=== PATIENT | female | born 1955 | race American Indian/Alaskan Native ===

== ENCOUNTER 2017-04-07 19:11 | Inpatient (IN) | payer OTHER ==
[2017-04-07 21:48] VITALS: BMI 27.8
--- NOTE | 2017-04-07 23:21 | CP.PCM.HP ---
History of Present Illness - History of Present Illness History of Present Illness: CC: rehab s/p L sided CVA HPI: This is a 61 y/o female with MHx significant for HTN, HLD, DM2, and glaucoma who was [place] [facility] [place]04[place] by EMS for R sided weakness (UE/LE), inability to walk, and aphasia. Patient did not receive TPA as duration of symptoms was unclear/outside window for administration. Patient was admitted to [facility] Had workup including brain MRI showing MCA infarct. Patient transferred here for rehab. Currently indicates weakness in R side of body is persistent. Patient is aphasic, but can understand speech and commands and can answer yes/no questions with nodding/shaking of head. Denies any CP/ SOB. N/V. ROS: Unable to perform because patient cannot speak MHx: HTN, HLD, DM2, glaucoma, meningioma SHx: None that she can communicate currently Allergies: NKDA per chart Medications: Pending entry Family Hx: Cannot provide due to aphasia Social Hx: Living situation -- with family? No tobacco, no EtOH Surrogate dec mkr: Info pending As noted above- MRI: L MCA territory infarct, falx meningioma MRA: Multifocal intracranial stenosis with M1 occlusion, neck shows no ICA stenosis noted Present on Admission - Present on Admission Any Indicators Present on Admission: No Meds Allergies/Adverse Reactions: Allergies Allergy/AdvReac Type Severity Reaction Status Date / Time No Known Allergies Allergy Verified 04/07/17 21:48 Physical Exam - Constitutional Appears: No Acute Distress - Head Exam Head Exam: ATRAUMATIC, NORMOCEPHALIC - Eye Exam Eye Exam: EOMI, PERRL - ENT Exam ENT Exam: Mucous Membranes Moist - Respiratory Exam Respiratory Exam: Clear to Auscultation Bilateral, NORMAL BREATHING PATTERN - Cardiovascular Exam Cardiovascular Exam: REGULAR RHYTHM, +S1, +S2 - GI/Abdominal Exam GI & Abdominal Exam: Normal Bowel Sounds, Soft - Extremities Exam Additional comments: patient with strength perhaps 1/5 on R side, normal strength on L - Neurological Exam Neurological exam: Alert, Oriented x3 Additional comments: Patient aphasic, R sided weakness as above - Psychiatric Exam Psychiatric exam: Normal Affect, Normal Mood - Skin Skin Exam: Dry, Warm Assessment & Plan (1) Status post CVA Assessment and Plan: 61 y/o female with HTN, HLD, and DM2 who had a L MCA territory CVA. 1) CVA/HLD -Cont Statin -COnt ASA -Cont Keppra -PT consult -Neuro f/u: Mak 2) DM2 -DM2 diet -Cont metformin -accucheck, SSI 3) HTN -- cont losartan 4) DVT PPx -- SQ Lovenox Status: Acute (2) HTN (hypertension) Status: Acute (3) HLD (hyperlipidemia) Status: Acute (4) DM2 (diabetes mellitus, type 2) Status: Acute (5) DVT prophylaxis Status: Acute
[2017-04-08 07:22] LABS: HEMOGLOBIN 13.2 g/dL (12.0-16.0); MEAN CELL VOLUME 80.6 fl (81.0-99.0); MEAN CORPUSCULAR HEMOGLOBIN 26.5 pg (27.0-31.0); MEAN CORPUSCULAR HGB CONC 32.9 g/dL (33.0-37.0); RBC 4.99 Mil/uL (3.80-5.20); WHITE BLOOD COUNT 8.4 K/uL (4.8-10.8)
[2017-04-08 07:33] LABS: BLOOD UREA NITROGEN 13 mg/dl (7-17); CALCIUM 8.7 mg/dL (8.4-10.2); GFR AFRICAN-AMERICAN > 60; GFR NON-AFRICAN AMERICAN > 60
[2017-04-08] MEDS: Insulin Lispro (humaLOG) 100 Units/ml Inj SC SCH ×4 (07:44→21:00)
[2017-04-08] MEDS: Enoxaparin 40 mg Syringe SC SCH (12:29)
[2017-04-08] MEDS: Pilocarpine 2% Opht Soln OU SCH ×3 (12:29→17:17)
--- NOTE | 2017-04-08 18:31 | CP.PCM.CON ---
History of Present Illness - History of Present Illness History of Present Illness: 61 year old female admitted to acute rehab for inpatient rehab with diagnosis of CVA with PMH of HTN, DM, hyperlipidemia status post right sided weakness Review of Systems - Neurological Neurological: Abnormal Gait, Abnormal Speech, Weakness Past Patient History - Past Medical History & Family History Past Medical History?: Yes - Past Social History Smoking Status: Never Smoked - CARDIAC Hx Hypertension: Yes - PULMONARY Hx Respiratory Disorders: No - NEUROLOGICAL Hx Neurological Disorder: Yes HX Cerebrovascular Accident: Yes Hx Seizures: Yes Other/Comment: HX. Meningioma - HEENT Hx Glaucoma: Yes - RENAL Hx Chronic Kidney Disease: No - ENDOCRINE/METABOLIC Hx Diabetes Mellitus Type 2: Yes - HEMATOLOGICAL/ONCOLOGICAL Hx Blood Disorders: No Hx AIDS: No Hx Human Immunodeficiency Virus (HIV): No - INTEGUMENTARY Hx Dermatological Problems: No - MUSCULOSKELETAL/RHEUMATOLOGICAL Hx Musculoskeletal Disorders: No Hx Falls: No - GASTROINTESTINAL Hx Gastrointestinal Disorders: No - GENITOURINARY/GYNECOLOGICAL Hx Genitourinary Disorders: No - PSYCHIATRIC Hx Psychophysiologic Disorder: No Hx Substance Use: No - SURGICAL HISTORY Hx Surgeries: No - ANESTHESIA Hx Anesthesia: No Meds Allergies/Adverse Reactions: Allergies Allergy/AdvReac Type Severity Reaction Status Date / Time No Known Allergies Allergy Verified 04/07/17 21:48 - Medications Medications: Current Medications Aspirin (Aspirin Chewable) 81 mg PO DAILY [facility] Last Admin: 04/08/17 08:24 Dose: 81 mg Atorvastatin Calcium (Lipitor) 40 mg PO HS [facility] Enoxaparin Sodium (Lovenox) 40 mg SC DAILY [facility] PRN Reason: Protocol Last Admin: 04/08/17 12:29 Dose: 40 mg Insulin Human Lispro (Humalog) 0 units SC [facility] PRN Reason: Protocol Last Admin: 04/08/17 16:55 Dose: Not Given Levetiracetam (Keppra) 1,000 mg PO Q12 [facility] Last Admin: 04/08/17 08:28 Dose: 1,000 mg Losartan Potassium (Cozaar) 25 mg PO DAILY [facility] Last Admin: 04/08/17 08:28 Dose: 25 mg Metformin HCl (Glucophage) 500 mg PO BIDWM [facility] Last Admin: 04/08/17 17:17 Dose: 500 mg Pilocarpine HCl (Isopto Carpine 2% Opht Soln) 1 drop OU TID [facility] Last Admin: 04/08/17 17:17 Dose: 1 applic Timolol Maleate (Timoptic 0.5% Ophth Soln) 1 drop OU DAILY [facility] Last Admin: 04/08/17 08:29 Dose: 1 applic Physical Exam - Head Exam Head Exam: ATRAUMATIC, NORMAL INSPECTION - Eye Exam Eye Exam: EOMI, Normal appearance Pupil Exam: NORMAL ACCOMODATION - ENT Exam ENT Exam: Mucous Membranes Moist - Neck Exam Neck exam: Positive for: Normal Inspection Additional comments: problems with aphasia - Respiratory Exam Respiratory Exam: Clear to Auscultation Bilateral, NORMAL BREATHING PATTERN - Cardiovascular Exam Cardiovascular Exam: REGULAR RHYTHM - GI/Abdominal Exam GI & Abdominal Exam: Normal Bowel Sounds - Rectal Exam Rectal Exam: NORMAL INSPECTION - Exam External exam: NORMAL EXTERNAL EXAM - Extremities Exam Extremities exam: Positive for: normal inspection Additional comments: right sided weakness with muscle 2/5 at knee and hip. the rest of the right arm amd right leg trace left side wnl - Back Exam Back exam: NORMAL INSPECTION - Neurological Exam Neurological exam: Alert - Psychiatric Exam Psychiatric exam: Normal Mood - Skin Skin Exam: Dry, Intact Results - Vital Signs Recent Vital Signs: Last Vital Signs Temp 98.7 F 04/08/17 09:37 Pulse 74 04/08/17 09:37 Resp 22 04/08/17 09:37 BP 137/84 04/08/17 09:37 Pulse Ox 98 04/08/17 09:37 - Labs Result Diagrams: 04/08/17 05:30 04/08/17 05:30 Labs: Laboratory Results - last 24 hr 04/07/17 04/08/17 04/08/17 23:31 05:30 05:30 WBC 8.4 RBC 4.99 Hgb 13.2 Hct 40.2 MCV 80.6 L MCH 26.5 L MCHC 32.9 L RDW 14.0 Plt Count 254 Sodium 143 Potassium 3.6 Chloride 107 Carbon Dioxide 24 Anion Gap 16 BUN 13 Creatinine 0.9 Est GFR ( Amer) > 60 Est GFR (Non-Af Amer) > 60 POC Glucose (mg/dL) 117 H Random Glucose 153 H Calcium 8.7 04/08/17 04/08/17 04/08/17 05:51 11:30 15:57 WBC RBC Hgb Hct MCV MCH MCHC RDW Plt Count Sodium Potassium Chloride Carbon Dioxide Anion Gap BUN Creatinine Est GFR ( Amer) Est GFR (Non-Af Amer) POC Glucose (mg/dL) 119 H 167 H 125 H Random Glucose Calcium Assessment & Plan (1) DM2 (diabetes mellitus, type 2) Status: Acute (2) DVT prophylaxis Status: Acute (3) HLD (hyperlipidemia) Status: Acute (4) HTN (hypertension) Status: Acute (5) Status post CVA Assessment and Plan: plan for physical, occupational, rec and speech therapy program for range of motion strenghtening transfers and gait training. Goals depend on return of muscle strenght , aphasia and balance. to write for overall plan of care for the patient Status: Acute
--- NOTE | 2017-04-08 18:41 | CP.PCM.PN ---
Subjective - Date & Time of Evaluation Date of Evaluation: 04/08/17 Time of Evaluation: 07:15 - Subjective Subjective: no acute complaints noted, patient problems with aphasia Objective - Vital Signs/Intake and Output Vital Signs (last 24 hours): Temp Pulse Resp BP Pulse Ox 98.7 F 74 22 137/84 98 04/08/17 09:37 04/08/17 09:37 04/08/17 09:37 04/08/17 09:37 04/08/17 09:37 - Medications Medications: Current Medications Aspirin (Aspirin Chewable) 81 mg PO DAILY [facility] Last Admin: 04/08/17 08:24 Dose: 81 mg Atorvastatin Calcium (Lipitor) 40 mg PO HS [facility] Enoxaparin Sodium (Lovenox) 40 mg SC DAILY [facility] PRN Reason: Protocol Last Admin: 04/08/17 12:29 Dose: 40 mg Insulin Human Lispro (Humalog) 0 units SC [facility]S [facility] PRN Reason: Protocol Last Admin: 04/08/17 16:55 Dose: Not Given Levetiracetam (Keppra) 1,000 mg PO Q12 [facility] Last Admin: 04/08/17 08:28 Dose: 1,000 mg Losartan Potassium (Cozaar) 25 mg PO DAILY [facility] Last Admin: 04/08/17 08:28 Dose: 25 mg Metformin HCl (Glucophage) 500 mg PO BIDWM [facility] Last Admin: 04/08/17 17:17 Dose: 500 mg Pilocarpine HCl (Isopto Carpine 2% Opht Soln) 1 drop OU TID [facility] Last Admin: 04/08/17 17:17 Dose: 1 applic Timolol Maleate (Timoptic 0.5% Ophth Soln) 1 drop OU DAILY [facility] Last Admin: 04/08/17 08:29 Dose: 1 applic - Labs Labs: 04/08/17 05:30 04/08/17 05:30 - Head Exam Head Exam: ATRAUMATIC, NORMOCEPHALIC - Eye Exam Eye Exam: Normal appearance - ENT Exam ENT Exam: Mucous Membranes Moist, Normal Exam - Neck Exam Neck Exam: Normal Inspection - Respiratory Exam Respiratory Exam: NORMAL BREATHING PATTERN - Cardiovascular Exam Cardiovascular Exam: REGULAR RHYTHM - GI/Abdominal Exam GI & Abdominal Exam: Normal Bowel Sounds - Rectal Exam Rectal Exam: NORMAL INSPECTION - Exam External exam: NORMAL EXTERNAL EXAM - Back Exam Back Exam: NORMAL INSPECTION - Neurological Exam Neurological Exam: Alert Neuro motor strength exam: Left Upper Extremity: 4, Right Upper Extremity: 0, Left Lower Extremity: 4, Right Lower Extremity: 2/1 - Psychiatric Exam Psychiatric exam: Normal Affect, Normal Mood - Skin Skin Exam: Dry, Intact Assessment and Plan (1) DM2 (diabetes mellitus, type 2) Status: Acute (2) DVT prophylaxis Status: Acute (3) HLD (hyperlipidemia) Status: Acute (4) HTN (hypertension) Status: Acute (5) Status post CVA Assessment & Plan: plan for physical, occupational, rec and speech therapy Status: Acute
--- NOTE | 2017-04-08 18:44 | PCM.OPOC ---
Physiatry Overall Plan of Care - Overall Plan of Care Estimated Length of Stay in Weeks: 3 Rehab Impairment: Mobility, Gait, Cognition, Speech, Balance, Coordination Etiologic Diagnosis: Cerebrovascular Accident - Anticipated Interventions Physical Therapy:: Yes Occupational Therapy:: Yes Speech Therapy:: Yes Recreational Therapy:: Yes - Therapy Goals Bed Mobility: Independent Functional Positional Changes:: Supervision Comments: fair - Functional Outcomes Functional Outcomes: fair - Discharge Plan Identification of Barriers to Discharge: Cognition Discharge Destination: Home
[2017-04-09] MEDS: Insulin Lispro (humaLOG) 100 Units/ml Inj SC SCH ×4 (06:30→21:00)
[2017-04-09] MEDS: Enoxaparin 40 mg Syringe SC SCH (08:38)
[2017-04-09] MEDS: Pilocarpine 2% Opht Soln OU SCH ×3 (08:38→16:44)
[2017-04-10] MEDS: Insulin Lispro (humaLOG) 100 Units/ml Inj SC SCH ×4 (07:02→21:53)
[2017-04-10] MEDS: Pantoprazole 40 mg EC Tab PO SCH (08:56)
[2017-04-10] MEDS: Pilocarpine 2% Opht Soln OU SCH ×3 (08:56→16:46)
[2017-04-10] MEDS: Enoxaparin 40 mg Syringe SC SCH (08:56)
--- NOTE | 2017-04-10 15:09 | CON ---
DATE: 04/10/2017 NEUROLOGY CONSULT CHIEF COMPLAINT: Status post right side weakness, status post left MCA CVA. HISTORY OF PRESENT ILLNESS: A 61-year-old woman with history of hypertension, dyslipidemia, type 2 diabetes mellitus, glaucoma, was initially brought to [facility] on the week of 04/04/2017 where she presented with right-sided weakness, inability to walk and an aphasia. She did not received TPA due to unclear onset of window. She was [place] [facility] [place] had an workup with the MRI of the brain showing the left MCA territory infarct with some underlying chronic infarction in the left MCA as well. MRI of the head showed just chronic intracranial stenosis and the MRA of the neck showed no significant hemodynamic stenosis in the ICAs. The patient has mild left falx meningioma which is small in nature, no surgical intervention needed at that time. She was placed on Keppra for seizure prophylaxis. Currently, she is at [facility] for right side weakness from CVA and undergoing physical and occupational speech therapy. No acute events overnight. REVIEW OF SYSTEM: A 14-point review of systems difficult to obtain due to patient is aphasic. PAST MEDICAL HISTORY: Hypertension, dyslipidemia and type 2 diabetes mellitus and meningioma. SOCIAL HISTORY: No illicit drug use, smoking or EtOH abuse. ALLERGIES: NO KNOWN DRUG ALLERGIES. MEDICATIONS: Reviewed by nurse reconciliation sheet. LABORATORY DATA: Blood sugar today is 163. PHYSICAL EXAMINATION: GENERAL: The patient is sitting up in bed, in no acute distress. VITAL SIGNS: Temperature 97.7, pulse rate 68, blood pressure 139/74, respiratory rate 21, oxygen saturation 98% on room air. HEENT: Atraumatic and normocephalic. PERRLA. Extraocular muscles intact. NECK: Supple. No JVD. No adenopathy noted. LUNGS: Clear to auscultation. No adventitious sounds. HEART: S1 and S2. Normal rate and rhythm. No murmur, rubs, or gallops. ABDOMEN: Soft, nontender, nondistended. Bowel sounds are present. EXTREMITIES: No clubbing. No cyanosis. Peripheral pulses 2+ bilaterally. NEUROLOGIC: The patient is alert and oriented to person and not yet to place and year. She has Wernicke-type aphasia. Cranial nerves has a mild right facial droop. Motor exam: Right-sided weakness in upper and lower extremities compared to the left. Sensory exam: Diffuse light touch and pinprick up to the calves bilaterally, decreased vibration on the toes. DTRs 2+ on both knees and ankles. Coordination: Difficult with the right side due to right side weakness from CVA, left side is intact. Gait is deferred for now as she sits in the wheelchair. ASSESSMENT AND PLAN: This is a 61-year-old woman with history of hypertension and dyslipidemia, type 2 diabetes mellitus, glaucoma presented to [facility] for right side weakness, did not receive TPA because it is out of the window. Underwent workup at [facility] with finding of the left middle cerebral artery territory infarct and is currently aphasic from the left middle cerebral artery territory. She has right-sided weakness from the left middle cerebral artery territory. She has a falx meningioma which is stable. Her MRI of the head showed multifocal intracranial stenosis with occlusion on the left and no intracranial stenosis on the carotids, seen on MRA of the neck. She is placed on a course on Keppra for seizure prophylaxis as well as aspirin and Lipitor. At this time, her left middle cerebral artery territory infarct is likely secondary to diffuse atherosclerotic disease, risk factor of diabetes, hypercholesterolemia and hypertension. RECOMMENDATIONS: 1. Acute physical, speech and occupational therapy for right-sided weakness. 2. Aspirin 81 and atorvastatin of 80 mg p.o. daily for stroke prevention. 3. For dyslipidemia, start on atorvastatin of 80 mg for 21 days, it can drop down to 40 mg. 4. Keep blood pressure between 140-180 mmHg. 5. Get a homocysteine level and continue present medical management and physical therapy. Hung Corado MD
[2017-04-11 06:25] LABS: HEMOGLOBIN 13.3 g/dL (12.0-16.0); MEAN CORPUSCULAR HEMOGLOBIN 25.5 pg (27.0-31.0); MEAN CORPUSCULAR HGB CONC 31.5 g/dL (33.0-37.0); RBC 5.22 Mil/uL (3.80-5.20); RED CELL DISTRIBUTION WIDTH 13.9 % (11.5-14.5); WHITE BLOOD COUNT 9.1 K/uL (4.8-10.8)
[2017-04-11 06:47] LABS: BLOOD UREA NITROGEN 16 mg/dl (7-17); CALCIUM 9.1 mg/dL (8.4-10.2); GFR AFRICAN-AMERICAN > 60; GFR NON-AFRICAN AMERICAN > 60
[2017-04-11] MEDS: Insulin Lispro (humaLOG) 100 Units/ml Inj SC SCH ×4 (07:11→21:13)
[2017-04-11] MEDS: Pilocarpine 2% Opht Soln OU SCH ×3 (08:08→16:56)
[2017-04-11] MEDS: Enoxaparin 40 mg Syringe SC SCH (08:11)
[2017-04-11] MEDS: Pantoprazole 40 mg EC Tab PO SCH (08:12)
--- NOTE | 2017-04-11 20:19 | CP.PCM.PN ---
Subjective - Date & Time of Evaluation Date of Evaluation: 04/11/17 Time of Evaluation: 09:00 - Subjective Subjective: patient with problems of aphasia, no acute complaints Objective - Vital Signs/Intake and Output Vital Signs (last 24 hours): Temp Pulse Resp BP Pulse Ox 97.0 F L 65 20 122/75 99 04/11/17 07:57 04/11/17 08:12 04/11/17 07:57 04/11/17 08:12 04/11/17 07:57 - Medications Medications: Current Medications Aspirin (Aspirin Chewable) 81 mg PO DAILY [facility] Last Admin: 04/11/17 08:12 Dose: 81 mg Atorvastatin Calcium (Lipitor) 80 mg PO HS [facility] Stop: 05/01/17 22:01 Last Admin: 04/10/17 21:53 Dose: 80 mg Enoxaparin Sodium (Lovenox) 40 mg SC DAILY [facility] PRN Reason: Protocol Last Admin: 04/11/17 08:11 Dose: 40 mg Insulin Human Lispro (Humalog) 0 units SC ACHS [facility] PRN Reason: Protocol Last Admin: 04/11/17 16:56 Dose: Not Given Levetiracetam (Keppra) 1,000 mg PO Q12 [facility] Last Admin: 04/11/17 08:11 Dose: 1,000 mg Losartan Potassium (Cozaar) 25 mg PO DAILY [facility] Last Admin: 04/11/17 08:12 Dose: 25 mg Metformin HCl (Glucophage) 500 mg PO BIDWM [facility] Last Admin: 04/11/17 16:56 Dose: 500 mg Pantoprazole Sodium (Protonix Ec Tab) 40 mg PO DAILY [facility] Last Admin: 04/11/17 08:12 Dose: 40 mg Pilocarpine HCl (Isopto Carpine 2% Opht Soln) 1 drop OU TID [facility] Last Admin: 04/11/17 16:56 Dose: 1 drop Timolol Maleate (Timoptic 0.5% Ophth Soln) 1 drop OU DAILY [facility] Last Admin: 04/11/17 08:10 Dose: 1 drop - Labs Labs: 04/11/17 06:00 04/11/17 06:00 - Head Exam Head Exam: ATRAUMATIC, NORMAL INSPECTION, NORMOCEPHALIC - Eye Exam Eye Exam: EOMI, Normal appearance Pupil Exam: NORMAL ACCOMODATION - ENT Exam ENT Exam: Mucous Membranes Moist, Normal Exam - Neck Exam Neck Exam: Full ROM, Normal Inspection - Respiratory Exam Respiratory Exam: NORMAL BREATHING PATTERN - Cardiovascular Exam Cardiovascular Exam: REGULAR RHYTHM - GI/Abdominal Exam GI & Abdominal Exam: Soft, Normal Bowel Sounds - Rectal Exam Rectal Exam: NORMAL INSPECTION - Exam External exam: NORMAL EXTERNAL EXAM - Extremities Exam Extremities Exam: Full ROM, Normal Capillary Refill, Normal Inspection - Back Exam Back Exam: NORMAL INSPECTION - Neurological Exam Neurological Exam: Alert, Awake Neuro motor strength exam: Left Upper Extremity: 3, Right Upper Extremity: 2/1, Left Lower Extremity: 3, Right Lower Extremity: 2/1 - Psychiatric Exam Psychiatric exam: Normal Affect, Normal Mood - Skin Skin Exam: Dry, Normal Color Assessment and Plan (1) DM2 (diabetes mellitus, type 2) Status: Acute (2) DVT prophylaxis Status: Acute (3) HLD (hyperlipidemia) Status: Acute (4) HTN (hypertension) Status: Acute (5) Status post CVA Assessment & Plan: plan for physical,occupational therapy for range of motion, strenghtening, transfers and gait training and speech therapy Status: Acute
[2017-04-12] MEDS: Insulin Lispro (humaLOG) 100 Units/ml Inj SC SCH ×4 (07:13→21:54)
[2017-04-12] MEDS: Pilocarpine 2% Opht Soln OU SCH ×3 (08:40→17:14)
[2017-04-12] MEDS: Enoxaparin 40 mg Syringe SC SCH (08:41)
[2017-04-12] MEDS: Pantoprazole 40 mg EC Tab PO SCH (08:41)
--- NOTE | 2017-04-12 12:05 | PSY.TMCNF ---
Nursing - Vital Signs Vital Signs (Last 8 hours): Vital Signs 04/12/17 04/12/17 04/12/17 07:57 08:40 09:00 Temperature 97.5 F L 97.5 F L Pulse Rate 71 71 71 Respiratory 20 20 Rate Blood Pressure 119/86 119/86 119/86 O2 Sat by Pulse 100 Oximetry Pain: 0 - Medications/Other Issues Comment: Crying spell - Consults Comment: Dr. Corado, Dr. Moralez - Toileting Toileting: Moderate Assistance - Bladder Management Bladder Pattern: Incontinent Voiding Method: Toilet, Diaper Frequency of Accidents: 0 - Bowel Management Bowel Pattern: Normal Bowel Management: Moderate Assistance Frequency of Accidents: 1 - Transfers Transfers: Moderate Assistance - ADL's ADL's: Moderate Assistance - Pain Management Comments: Denies pain - Patient/Family Teaching Comments: Post CVA care. Safety - Goals/Time Frame Comments: Per multidiscplinary team. Physical Therapy - Bed Mobility Bed Mobility: Verbal Cues, Moderate Assistance, Maximum Assistance - Transfers Wheelchair to Mat: Verbal Cues, Moderate Assistance, Maximum Assistance Sit to Stand: Verbal Cues, Moderate Assistance Comment: mod VCs for impulsivity/safety and for hand placement during t/f. inconsistently, pt able to scoot back/forth in w/c w/ CS - Ambulation Level of Assistance: Verbal Cues, Moderate Assistance Distance (ft.): 28 Orthoses: RLE DF wrap, RUE giv-dmitri sling Comment: 28' x 1 WBQC. 36' x 1 NBQC. w/c follow. step to pattern. initial contact R foot flat, intermittent posterior instability noted during double limb support w/ min A to correct. impulsivity continues but pt w/ improved carryover during vc/tc for sequencing, step length and to abduct RLE just prior to initial contact. R knee blocked posteriorly intermittently to address hyperext in mid stance. Cont'd assistance to weight shift, but improved ability to advance RLE. Cont'd difficulty noted navigating turns and obstacles. WBQC vs NBQC, pt able to amb w/ both AD. NBQC recommended at this time. - Stair Negotiation Stairs: Level of Assistance: Not Tested Comment: Pt is not safe to attempt steps at this time - Standing Balance Static Stand: Minimal Assistance Dynamic Stand: Moderate Assistance Comment: supported w/ AD - Pain Pain (assessed during therapy session): 0 Comment: N/A - Insight/Carryover Insight/Carryover: Fair - Patient/Family Education Comment: CVA related recovery topics, activity pacing, fxnl mob, safety, posture , DME, orthotic mgmt, balance - Assessment/Plan Assessment: 61 yo female admitted to [facility] acute rehab s/p L CVA and small meningioma. Pt currently requires mod/max A for all ambulatory activities. Pt presents w/ motor return of RLE. She cont's to present w/ impaired cognition, ROM, balance, activity tolerance, safety awareness, strength and fxnl mob. Cont' d skilled PT recommended to address deficits. - Goals Timeframe: 4 weeks Goals: supervision bed mob. transfers supervision with nbqc. 150 feet with CS with NBQC. CG x 2 flights of steps - Provider License Number: [id number] Occupational Therapy - Arousal/Attention/Orientation Patient Orientation: Person, Appropriate to Situation - ADL/IADL Self Feeding: Supervision, Set-up Help Grooming: Minimal Assistance Dressing-Upper Extremity: Maximum Assistance Dressing-Lower Extremity: Dependent - Sitting Balance Static Sitting: Supervision Dynamic Sitting: Contact Guard Assist - Transfers Wheelchair to Bed Transfers: Maximum Assistance Toilet Transfers: Maximum Assistance Comment: Tub and shower transfers not assessed during the initial evaluation. - Pain Pain (assessed during therapy session): 0 Comment: N/A - Insight/Carryover Insight/Carryover: Fair - Patient/Family Education Comment: CVA related recovery topics, activity pacing, fxnl mob, safety, posture , DME, orthotic mgmt, balance - Assessment/Plan Assessment: 61 yo female admitted to [facility] acute rehab s/p L CVA and small meningioma. Pt currently requires mod/max A for all ambulatory activities. Pt presents w/ motor return of RLE. She cont's to present w/ impaired cognition, ROM, balance, activity tolerance, safety awareness, strength and fxnl mob. Cont' d skilled PT recommended to address deficits. - Goals Timeframe: 4 weeks Goals: supervision bed mob. transfers supervision with nbqc. 150 feet with CS with NBQC. CG x 2 flights of steps - Provider Therapist: RE Man/[facility] Speech Therapy - Consult Information Patient on Program: Yes Medical Diagnosis: CVA Treatment Diagnosis: -severe apraxia of speech/expressive aphasia. -moderate receptive aphasia - Assessment Expressive Language Impairment: Severe Receptive Language Impairment: Moderate Speech/Articulation Impairment: Severe - Plan Assessment: 61 yo female admitted to [facility] acute rehab s/p L CVA and small meningioma. Pt currently requires mod/max A for all ambulatory activities. Pt presents w/ motor return of RLE. She cont's to present w/ impaired cognition, ROM, balance, activity tolerance, safety awareness, strength and fxnl mob. Cont' d skilled PT recommended to address deficits. Plan: Continue Speech/Language Therapy - Provider Therapist: Leslie Villanueva License Number: [id number] Recreational Therapy - Participation Participation: Participates in Individual and/or Group Sessions - Attendance Attendance: 3-5 times per week - Activities Leisure Activities: Cards and Games - Socialization Level of Socialization: Requires 1:1 guidance to respond, Socialization severely limited - Assessment Assessment/Plan: 61 yo female admitted to [facility] acute rehab s/p L CVA and small meningioma. Pt currently requires mod/max A for all ambulatory activities. Pt presents w/ motor return of RLE. She cont's to present w/ impaired cognition, ROM, balance, activity tolerance, safety awareness, strength and fxnl mob. Cont' d skilled PT recommended to address deficits. - Provider Therapist: Elizabeth Medina, [employer] #[id number] Nutrition - Current Diet Current Diet/ Supplement/ Feedings: Moderate consistent CHO 2 gram Na low fat/ low cholesterol diet - Appetite Percent Meal Consumed: 75-100% - Comments Comments: Post CVA care. Safety - Assessment/Goals/Time Frame Assessment/Goals/Time Frame: Crying spell - Provider Provider: Alanna Petty RD Case Management - Discharge Plan Discharge Plan: Home with significant other/family Rehabilitation Plan - Treatment Plan Treatment Plan: Physical Therapy, Occupational Therapy, Speech, Dietary, Patient /Family Education - Recommendation Recommendation: Physical Therapy, Occupational Therapy, Speech, Dietary, Patient /Family Education - Discharge Plan Discharge to: Home (may 01)
--- NOTE | 2017-04-12 13:30 | CP.PCM.CON ---
History of Present Illness - History of Present Illness History of Present Illness: Psychiatry consult called to evaluate for depression CC: rehab s/p L sided CVA; patient unable to verbalize a CC HPI: This is a 61 y/o female with MHx significant for HTN, HLD, DM2, and glaucoma who was brought into the ED at [facility] earlier this week (04/04?) by EMS for R sided weakness (UE/LE), inability to walk, and aphasia. Patient did not receive TPA as duration of symptoms was unclear/outside window for administration. Patient was admitted to [facility]. Had workup including brain MRI showing MCA infarct. Patient transferred here for rehab. Currently indicates weakness in R side of body is persistent. Patient is aphasic, but can understand speech and commands and can answer yes/no questions with nodding/shaking of head. Patient does shake her head "yes" that she feels depressed intermittently. She denied anxiety/AH/VH/paranoia/SI/HI. She smiled to display card writer and has been participating in rehab. She has also been eating as per staff. PPHx: Patient denies past psychiatric history of depression, anxiety, suicide attempts or psychiatric admission. ROS: Unable to perform because patient cannot speak MHx: HTN, HLD, DM2, glaucoma, meningioma Allergies: NKDA per chart Family Hx: Cannot provide due to aphasia Social Hx: No tobacco, no EtOH Surrogate dec mkr: Info pending As noted above- MRI: L MCA territory infarct, falx meningioma MRA: Multifocal intracranial stenosis with M1 occlusion, neck shows no ICA stenosis noted MSE: Calm, smiles at display card writer. Patient aphasic, therefore unable to answer questions Impression: 61 yo female s/p CVA has been observed crying and shakes her head "yes" when asked if she feels depressed intermittently; at this time patient likely has adjustment disorder w/ depressed mood; would recommend to continue observing the patient's mood and if she continues to have depressed affect, will consider starting antidepressants at a later time. No acute inpatient psychiatric admission indicated at this time. Past Patient History - Past Medical History & Family History Past Medical History?: Yes - Past Social History Smoking Status: Never Smoked - CARDIAC Hx Hypertension: Yes - PULMONARY Hx Respiratory Disorders: No - NEUROLOGICAL Hx Neurological Disorder: Yes HX Cerebrovascular Accident: Yes Hx Seizures: Yes Other/Comment: HX. Meningioma - HEENT Hx Glaucoma: Yes - RENAL Hx Chronic Kidney Disease: No - ENDOCRINE/METABOLIC Hx Diabetes Mellitus Type 2: Yes - HEMATOLOGICAL/ONCOLOGICAL Hx Blood Disorders: No Hx AIDS: No Hx Human Immunodeficiency Virus (HIV): No - INTEGUMENTARY Hx Dermatological Problems: No - MUSCULOSKELETAL/RHEUMATOLOGICAL Hx Musculoskeletal Disorders: No Hx Falls: No - GASTROINTESTINAL Hx Gastrointestinal Disorders: No - GENITOURINARY/GYNECOLOGICAL Hx Genitourinary Disorders: No - PSYCHIATRIC Hx Psychophysiologic Disorder: No Hx Substance Use: No - SURGICAL HISTORY Hx Surgeries: No - ANESTHESIA Hx Anesthesia: No Meds Allergies/Adverse Reactions: Allergies Allergy/AdvReac Type Severity Reaction Status Date / Time No Known Allergies Allergy Verified 04/07/17 21:48 - Medications Medications: Current Medications Aspirin (Aspirin Chewable) 81 mg PO DAILY [facility] Last Admin: 04/12/17 08:40 Dose: 81 mg Atorvastatin Calcium (Lipitor) 80 mg PO HS [facility] Stop: 05/01/17 22:01 Last Admin: 04/11/17 21:13 Dose: 80 mg Enoxaparin Sodium (Lovenox) 40 mg SC DAILY [facility] PRN Reason: Protocol Last Admin: 04/12/17 08:41 Dose: 40 mg Insulin Human Lispro (Humalog) 0 units SC ACHS [facility] PRN Reason: Protocol Last Admin: 04/12/17 11:59 Dose: 2 unit Levetiracetam (Keppra) 1,000 mg PO Q12 [facility] Last Admin: 04/12/17 08:40 Dose: 1,000 mg Losartan Potassium (Cozaar) 25 mg PO DAILY [facility] Last Admin: 04/12/17 08:40 Dose: 25 mg Metformin HCl (Glucophage) 500 mg PO BIDWM [facility] Last Admin: 04/12/17 08:40 Dose: 500 mg Pantoprazole Sodium (Protonix Ec Tab) 40 mg PO DAILY [facility] Last Admin: 04/12/17 08:41 Dose: 40 mg Pilocarpine HCl (Isopto Carpine 2% Opht Soln) 1 drop OU TID [facility] Last Admin: 04/12/17 12:01 Dose: 1 drop Timolol Maleate (Timoptic 0.5% Ophth Soln) 1 drop OU DAILY [facility] Last Admin: 04/12/17 08:41 Dose: 1 drop Results - Vital Signs Recent Vital Signs: Last Vital Signs Temp 97.5 F L 04/12/17 09:00 Pulse 71 04/12/17 09:00 Resp 20 04/12/17 09:00 BP 119/86 04/12/17 09:00 Pulse Ox 100 04/12/17 07:57 - Labs Result Diagrams: 04/11/17 06:00 04/11/17 06:00 Labs: Laboratory Results - last 24 hr 04/11/17 04/11/17 04/12/17 16:04 21:11 05:30 POC Glucose (mg/dL) 130 H 130 H 143 H
--- NOTE | 2017-04-12 15:44 | CP.PCM.PN ---
Subjective - Date & Time of Evaluation Date of Evaluation: 04/12/17 Time of Evaluation: 12:00 - Subjective Subjective: Patient was seen and examined at bedside. She states that she feels well. Has been noticed to be crying intermittently so psychiatry was called. Tolerating therapies well. NAD. HD stable. Nods and shakes her head; responds appropriately to questioning. Objective - Vital Signs/Intake and Output Vital Signs (last 24 hours): Temp Pulse Resp BP Pulse Ox 97.5 F L 71 20 119/86 100 04/12/17 09:00 04/12/17 09:00 04/12/17 09:00 04/12/17 09:00 04/12/17 07:57 - Medications Medications: Current Medications Aspirin (Aspirin Chewable) 81 mg PO DAILY [facility] Last Admin: 04/12/17 08:40 Dose: 81 mg Atorvastatin Calcium (Lipitor) 80 mg PO HS [facility] Stop: 05/01/17 22:01 Last Admin: 04/11/17 21:13 Dose: 80 mg Enoxaparin Sodium (Lovenox) 40 mg SC DAILY [facility] PRN Reason: Protocol Last Admin: 04/12/17 08:41 Dose: 40 mg Insulin Human Lispro (Humalog) 0 units SC ACHS [facility] PRN Reason: Protocol Last Admin: 04/12/17 11:59 Dose: 2 unit Levetiracetam (Keppra) 1,000 mg PO Q12 [facility] Last Admin: 04/12/17 08:40 Dose: 1,000 mg Losartan Potassium (Cozaar) 25 mg PO DAILY [facility] Last Admin: 04/12/17 08:40 Dose: 25 mg Metformin HCl (Glucophage) 500 mg PO BIDWM [facility] Last Admin: 04/12/17 08:40 Dose: 500 mg Pantoprazole Sodium (Protonix Ec Tab) 40 mg PO DAILY [facility] Last Admin: 04/12/17 08:41 Dose: 40 mg Pilocarpine HCl (Isopto Carpine 2% Opht Soln) 1 drop OU TID [facility] Last Admin: 04/12/17 12:01 Dose: 1 drop Timolol Maleate (Timoptic 0.5% Ophth Soln) 1 drop OU DAILY [facility] Last Admin: 04/12/17 08:41 Dose: 1 drop - Labs Labs: 04/11/17 06:00 04/11/17 06:00 - Additional Findings Additional findings: Physical exam: Constitutional- cooperative, awake, alert Head- NCAT, PERRL Eye- PERRL, EOMI ENT- normal exam, MMM. Neck- normal inspection, supple, no JVD Respiratory- CTAB, no wheezes rales rhonchi Cardiovascular- RRR, +S1, +S2 no MRG GI/Abdominal- normal bowel sounds, soft, no mass, no hsm Skin- warm, dry Extremities Exam- normal capillary refill, normal inspection Neurological Exam- alert, awake, oriented. 1/5 muscle strength to right upper and lower extremities. 5/5 muscle strength to left upper and lower extremities. + Aphasic. Psych- normal mood, normal affect Assessment and Plan - Assessment and Plan (Free Text) Plan: This is a 61 y/o female with MHx significant for HTN, HLD, DM2, and glaucoma who was brought into the ED at [facility] on 04/04/2017 by EMS for R sided weakness (UE /LE), inability to walk, and aphasia. Patient did not receive TPA as duration of symptoms was unclear/outside window for administration. Patient was admitted to [facility]. Had workup including brain MRI showing acute left MCA infarct. The patient was subsequently admitted to [facility] for acute rehab. Currently indicates weakness in R side of body is persistent. Patient is aphasic, but can understand speech and commands and can answer yes/no questions with nodding/ shaking of head. 1) CVA - Continue PT/OT/ST - Dr. Corado on consultation from neurology - Continue Keppra - Continue ASA - Statin 2) Type 2 DM - Continue Metformin - Continue regular insulin sliding scale with accucheks AC+HS - Moderate carbohydrate diet 3) Hypertension - Continue home losartan 4) Adjustment order with depressed mood - Dr. Masterson, psychiatry consultation - recommends observing the patient for now, if mood does not improve will start antidepressant 4) DVT prophylaxis - Lovenox
--- NOTE | 2017-04-12 21:12 | CP.PCM.PN ---
Subjective - Date & Time of Evaluation Date of Evaluation: 04/12/17 Time of Evaluation: 11:00 - Subjective Subjective: no acute complaints, depressed at times Objective - Vital Signs/Intake and Output Vital Signs (last 24 hours): Temp Pulse Resp BP Pulse Ox 97.5 F L 71 20 119/86 100 04/12/17 09:00 04/12/17 09:00 04/12/17 09:00 04/12/17 09:00 04/12/17 07:57 - Medications Medications: Current Medications Aspirin (Aspirin Chewable) 81 mg PO DAILY [facility] Last Admin: 04/12/17 08:40 Dose: 81 mg Atorvastatin Calcium (Lipitor) 80 mg PO HS [facility] Stop: 05/01/17 22:01 Last Admin: 04/11/17 21:13 Dose: 80 mg Enoxaparin Sodium (Lovenox) 40 mg SC DAILY [facility] PRN Reason: Protocol Last Admin: 04/12/17 08:41 Dose: 40 mg Insulin Human Lispro (Humalog) 0 units SC ACHS [facility] PRN Reason: Protocol Last Admin: 04/12/17 17:13 Dose: Not Given Levetiracetam (Keppra) 1,000 mg PO Q12 [facility] Last Admin: 04/12/17 08:40 Dose: 1,000 mg Losartan Potassium (Cozaar) 25 mg PO DAILY [facility] Last Admin: 04/12/17 08:40 Dose: 25 mg Metformin HCl (Glucophage) 500 mg PO BIDWM [facility] Last Admin: 04/12/17 17:13 Dose: 500 mg Pantoprazole Sodium (Protonix Ec Tab) 40 mg PO DAILY [facility] Last Admin: 04/12/17 08:41 Dose: 40 mg Pilocarpine HCl (Isopto Carpine 2% Opht Soln) 1 drop OU TID [facility] Last Admin: 04/12/17 17:14 Dose: 1 drop Timolol Maleate (Timoptic 0.5% Ophth Soln) 1 drop OU DAILY [facility] Last Admin: 04/12/17 08:41 Dose: 1 drop - Labs Labs: 04/11/17 06:00 04/11/17 06:00 - Head Exam Head Exam: ATRAUMATIC, NORMAL INSPECTION, NORMOCEPHALIC - Eye Exam Eye Exam: EOMI, Normal appearance, PERRL - ENT Exam ENT Exam: Mucous Membranes Moist, Normal Exam - Neck Exam Neck Exam: Full ROM, Normal Inspection. absent: Lymphadenopathy - Respiratory Exam Respiratory Exam: Clear to Ausculation Bilateral, NORMAL BREATHING PATTERN - GI/Abdominal Exam GI & Abdominal Exam: Soft, Normal Bowel Sounds. absent: Tenderness - Rectal Exam Rectal Exam: NORMAL INSPECTION - Extremities Exam Extremities Exam: Full ROM, Normal Capillary Refill, Normal Inspection - Back Exam Back Exam: NORMAL INSPECTION - Neurological Exam Neurological Exam: Alert, Awake Neuro motor strength exam: Left Upper Extremity: 3, Right Upper Extremity: 2/1, Left Lower Extremity: 3, Right Lower Extremity: 2/1 - Psychiatric Exam Psychiatric exam: Normal Affect, Normal Mood Assessment and Plan (1) DM2 (diabetes mellitus, type 2) Status: Acute (2) DVT prophylaxis Status: Acute (3) HLD (hyperlipidemia) Status: Acute (4) HTN (hypertension) Status: Acute (5) Status post CVA Assessment & Plan: status post team conference discussed Dc planning for may 01 Status: Acute
[2017-04-13] MEDS: Insulin Lispro (humaLOG) 100 Units/ml Inj SC SCH ×4 (06:36→21:41)
[2017-04-13] MEDS: Pantoprazole 40 mg EC Tab PO SCH (08:25)
[2017-04-13] MEDS: Pilocarpine 2% Opht Soln OU SCH ×3 (08:26→16:36)
[2017-04-13] MEDS: Enoxaparin 40 mg Syringe SC SCH (08:27)
[2017-04-14] MEDS: Insulin Lispro (humaLOG) 100 Units/ml Inj SC SCH ×4 (06:31→21:24)
[2017-04-14 07:06] LABS: HEMOGLOBIN 13.9 g/dL (12.0-16.0); MEAN CELL VOLUME 81.9 fl (81.0-99.0); MEAN CORPUSCULAR HEMOGLOBIN 26.6 pg (27.0-31.0); MEAN CORPUSCULAR HGB CONC 32.5 g/dL (33.0-37.0); RBC 5.22 Mil/uL (3.80-5.20); RED CELL DISTRIBUTION WIDTH 13.8 % (11.5-14.5); WHITE BLOOD COUNT 9.4 K/uL (4.8-10.8)
--- NOTE | 2017-04-14 07:43 | CP.PCM.CON ---
History of Present Illness - History of Present Illness History of Present Illness: Pt is a 61 year old female admitted to [facility] and referred to the proposal manager writer for evalaution. Med history postive for recent CVA, HTN, DM, glaucoma, obesity. See medical record for complete medical history and medications. Note , history unreliable due to aphasia. Social History: pt reported living with a friend. Note, staff reports she lives with brother. Pt reported having 3 sblings, never marrying, 0 children. She reported positive relationships with family members. Ed.Voc: pt raised in the [place], she graduated HS, college (?). 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 Pt spoke of satisfaction with her life prior to admission. She denied a history of psychiatric/pscyhological intervention. She also denied a history of alcohol/substance abuse. MSE: Pt able to follow one and two step commands on evaluation. Her affect was full in range and she denied depression/anxiety. Stroke education provided, no psychosis, no si no hi ideation. Dx: Adjustment Dx Plan: continued monitoring Past Patient History - Past Medical History & Family History Past Medical History?: Yes - Past Social History Smoking Status: Never Smoked - CARDIAC Hx Hypertension: Yes - PULMONARY Hx Respiratory Disorders: No - NEUROLOGICAL Hx Neurological Disorder: Yes HX Cerebrovascular Accident: Yes Hx Seizures: Yes Other/Comment: HX. Meningioma - HEENT Hx Glaucoma: Yes - RENAL Hx Chronic Kidney Disease: No - ENDOCRINE/METABOLIC Hx Diabetes Mellitus Type 2: Yes - HEMATOLOGICAL/ONCOLOGICAL Hx Blood Disorders: No Hx AIDS: No Hx Human Immunodeficiency Virus (HIV): No - INTEGUMENTARY Hx Dermatological Problems: No - MUSCULOSKELETAL/RHEUMATOLOGICAL Hx Musculoskeletal Disorders: No Hx Falls: No - GASTROINTESTINAL Hx Gastrointestinal Disorders: No - GENITOURINARY/GYNECOLOGICAL Hx Genitourinary Disorders: No - PSYCHIATRIC Hx Psychophysiologic Disorder: No Hx Substance Use: No - SURGICAL HISTORY Hx Surgeries: No - ANESTHESIA Hx Anesthesia: No Meds Allergies/Adverse Reactions: Allergies Allergy/AdvReac Type Severity Reaction Status Date / Time No Known Allergies Allergy Verified 04/07/17 21:48 - Medications Medications: Current Medications Aspirin (Aspirin Chewable) 81 mg PO DAILY [facility] Last Admin: 04/13/17 08:27 Dose: 81 mg Atorvastatin Calcium (Lipitor) 80 mg PO HS [facility] Stop: 05/01/17 22:01 Last Admin: 04/13/17 21:40 Dose: 80 mg Enoxaparin Sodium (Lovenox) 40 mg SC DAILY [facility] PRN Reason: Protocol Last Admin: 04/13/17 08:27 Dose: 40 mg Insulin Human Lispro (Humalog) 0 units SC ACHS [facility] PRN Reason: Protocol Last Admin: 04/14/17 06:31 Dose: Not Given Levetiracetam (Keppra) 1,000 mg PO Q12 [facility] Last Admin: 04/13/17 21:41 Dose: 1,000 mg Losartan Potassium (Cozaar) 25 mg PO DAILY [facility] Last Admin: 04/13/17 08:25 Dose: 25 mg Metformin HCl (Glucophage) 500 mg PO BIDWM [facility] Last Admin: 04/13/17 16:36 Dose: 500 mg Pantoprazole Sodium (Protonix Ec Tab) 40 mg PO DAILY [facility] Last Admin: 04/13/17 08:25 Dose: 40 mg Pilocarpine HCl (Isopto Carpine 2% Opht Soln) 1 drop OU TID [facility] Last Admin: 04/13/17 16:36 Dose: 1 drop Timolol Maleate (Timoptic 0.5% Ophth Soln) 1 drop OU DAILY [facility] Last Admin: 04/13/17 08:26 Dose: 1 drop Results - Vital Signs Recent Vital Signs: Last Vital Signs Temp 96.6 F L 04/13/17 07:59 Pulse 68 04/13/17 08:25 Resp 18 04/13/17 07:59 BP 140/79 04/13/17 08:25 Pulse Ox 98 04/13/17 07:59 - Labs Result Diagrams: 04/14/17 06:00 04/11/17 06:00 Labs: Laboratory Results - last 24 hr 04/13/17 04/13/17 04/13/17 11:32 15:57 21:18 WBC RBC Hgb Hct MCV MCH MCHC RDW Plt Count POC Glucose (mg/dL) 167 H 133 H 121 H 04/14/17 04/14/17 05:53 06:00 WBC 9.4 RBC 5.22 H Hgb 13.9 Hct 42.8 MCV 81.9 MCH 26.6 L MCHC 32.5 L RDW 13.8 Plt Count 272 POC Glucose (mg/dL) 137 H
[2017-04-14 08:15] LABS: BLOOD UREA NITROGEN 16 mg/dl (7-17); CALCIUM 9.3 mg/dL (8.4-10.2); GFR AFRICAN-AMERICAN > 60; GFR NON-AFRICAN AMERICAN > 60
[2017-04-14] MEDS: Pilocarpine 2% Opht Soln OU SCH ×3 (08:58→17:52)
[2017-04-14] MEDS: Pantoprazole 40 mg EC Tab PO SCH (08:58)
[2017-04-14] MEDS: Enoxaparin 40 mg Syringe SC SCH (08:59)
--- NOTE | 2017-04-14 18:39 | CP.PCM.PN ---
Subjective - Date & Time of Evaluation Date of Evaluation: 04/14/17 Time of Evaluation: 10:00 - Subjective Subjective: nol acute complaints at present Objective - Vital Signs/Intake and Output Vital Signs (last 24 hours): Temp Pulse Resp BP Pulse Ox 96.6 F L 72 18 130/70 98 04/13/17 07:59 04/14/17 08:58 04/13/17 07:59 04/14/17 08:58 04/13/17 07:59 - Medications Medications: Current Medications Aspirin (Aspirin Chewable) 81 mg PO DAILY [facility] Last Admin: 04/14/17 08:58 Dose: 81 mg Atorvastatin Calcium (Lipitor) 80 mg PO HS [facility] Stop: 05/01/17 22:01 Last Admin: 04/13/17 21:40 Dose: 80 mg Enoxaparin Sodium (Lovenox) 40 mg SC DAILY [facility] PRN Reason: Protocol Last Admin: 04/14/17 08:59 Dose: 40 mg Insulin Human Lispro (Humalog) 0 units SC ACHS [facility] PRN Reason: Protocol Last Admin: 04/14/17 16:30 Dose: Not Given Levetiracetam (Keppra) 1,000 mg PO Q12 [facility] Last Admin: 04/14/17 08:59 Dose: 1,000 mg Losartan Potassium (Cozaar) 25 mg PO DAILY [facility] Last Admin: 04/14/17 08:58 Dose: 25 mg Metformin HCl (Glucophage) 500 mg PO BIDWM [facility] Last Admin: 04/14/17 17:51 Dose: 500 mg Pantoprazole Sodium (Protonix Ec Tab) 40 mg PO DAILY [facility] Last Admin: 04/14/17 08:58 Dose: 40 mg Pilocarpine HCl (Isopto Carpine 2% Opht Soln) 1 drop OU TID [facility] Last Admin: 04/14/17 17:52 Dose: 1 drop Timolol Maleate (Timoptic 0.5% Ophth Soln) 1 drop OU DAILY [facility] Last Admin: 04/14/17 08:59 Dose: 1 drop - Labs Labs: 04/14/17 06:00 04/14/17 05:30 - Head Exam Head Exam: ATRAUMATIC, NORMAL INSPECTION - Eye Exam Eye Exam: EOMI, Normal appearance Pupil Exam: NORMAL ACCOMODATION - ENT Exam ENT Exam: Mucous Membranes Moist, Normal Exam - Neck Exam Neck Exam: Normal Inspection - Respiratory Exam Respiratory Exam: Clear to Ausculation Bilateral, NORMAL BREATHING PATTERN - Cardiovascular Exam Cardiovascular Exam: REGULAR RHYTHM - GI/Abdominal Exam GI & Abdominal Exam: Normal Bowel Sounds - Rectal Exam Rectal Exam: NORMAL INSPECTION - Exam External exam: NORMAL EXTERNAL EXAM - Extremities Exam Extremities Exam: Full ROM, Normal Capillary Refill, Normal Inspection - Back Exam Back Exam: paraspinal tenderness - Neurological Exam Neurological Exam: Alert, Awake Neuro motor strength exam: Left Upper Extremity: 2/1, Right Upper Extremity: 3, Left Lower Extremity: 2/1, Right Lower Extremity: 3 - Psychiatric Exam Psychiatric exam: Normal Affect, Normal Mood - Skin Skin Exam: Dry, Intact Assessment and Plan (1) DM2 (diabetes mellitus, type 2) Status: Acute (2) DVT prophylaxis Status: Acute (3) HLD (hyperlipidemia) Status: Acute (4) HTN (hypertension) Status: Acute (5) Status post CVA Assessment & Plan: plan for physical, occupational, rec and speech therapy written for electric stim. Status: Acute
[2017-04-15] MEDS: Insulin Lispro (humaLOG) 100 Units/ml Inj SC SCH ×4 (06:40→21:51)
[2017-04-15] MEDS: Enoxaparin 40 mg Syringe SC SCH (08:13)
[2017-04-15] MEDS: Pantoprazole 40 mg EC Tab PO SCH (08:14)
[2017-04-15] MEDS: Pilocarpine 2% Opht Soln OU SCH ×3 (08:15→17:56)
[2017-04-16] MEDS: Insulin Lispro (humaLOG) 100 Units/ml Inj SC SCH ×4 (07:21→21:13)
[2017-04-16] MEDS: Pilocarpine 2% Opht Soln OU SCH ×3 (08:45→16:50)
[2017-04-16] MEDS: Enoxaparin 40 mg Syringe SC SCH (08:46)
[2017-04-16] MEDS: Pantoprazole 40 mg EC Tab PO SCH (08:46)
[2017-04-17 06:30] LABS: HEMOGLOBIN 13.4 g/dL (12.0-16.0); MEAN CELL VOLUME 81.4 fl (81.0-99.0); MEAN CORPUSCULAR HEMOGLOBIN 26.1 pg (27.0-31.0); RBC 5.16 Mil/uL (3.80-5.20); WHITE BLOOD COUNT 9.7 K/uL (4.8-10.8)
[2017-04-17 06:43] LABS: BLOOD UREA NITROGEN 15 mg/dl (7-17); CALCIUM 9.4 mg/dL (8.4-10.2); GFR AFRICAN-AMERICAN > 60; GFR NON-AFRICAN AMERICAN > 60
[2017-04-17] MEDS: Insulin Lispro (humaLOG) 100 Units/ml Inj SC SCH ×4 (07:30→21:33)
[2017-04-17] MEDS: Pilocarpine 2% Opht Soln OU SCH ×3 (09:17→16:49)
[2017-04-17] MEDS: Pantoprazole 40 mg EC Tab PO SCH (09:18)
[2017-04-17] MEDS: Enoxaparin 40 mg Syringe SC SCH (09:19)
--- NOTE | 2017-04-17 12:21 | CP.PCM.PN ---
Subjective - Date & Time of Evaluation Date of Evaluation: 04/17/17 Time of Evaluation: 11:00 - Subjective Subjective: Patient was seen and examined while OOB to chair during speech therapy. Is able to say a few words now as per ST. Nods yes when asked if she is feeling well. Denies any cp/sob/f/c/n/v/d. Objective - Vital Signs/Intake and Output Vital Signs (last 24 hours): Temp Pulse Resp BP Pulse Ox 97.8 F 67 20 138/71 98 04/17/17 10:00 04/17/17 10:00 04/17/17 10:00 04/17/17 10:00 04/17/17 10:00 - Medications Medications: Current Medications Aspirin (Aspirin Chewable) 81 mg PO DAILY [facility] Last Admin: 04/17/17 09:18 Dose: 81 mg Atorvastatin Calcium (Lipitor) 80 mg PO HS [facility] Stop: 05/01/17 22:01 Last Admin: 04/16/17 21:04 Dose: 80 mg Enoxaparin Sodium (Lovenox) 40 mg SC DAILY [facility] PRN Reason: Protocol Last Admin: 04/17/17 09:19 Dose: 40 mg Insulin Human Lispro (Humalog) 0 units SC ACHS [facility] PRN Reason: Protocol Last Admin: 04/17/17 07:30 Dose: Not Given Levetiracetam (Keppra) 1,000 mg PO Q12 [facility] Last Admin: 04/17/17 09:18 Dose: 1,000 mg Losartan Potassium (Cozaar) 25 mg PO DAILY [facility] Last Admin: 04/17/17 09:18 Dose: 25 mg Metformin HCl (Glucophage) 500 mg PO BIDWM [facility] Last Admin: 04/17/17 09:18 Dose: 500 mg Pantoprazole Sodium (Protonix Ec Tab) 40 mg PO DAILY [facility] Last Admin: 04/17/17 09:18 Dose: 40 mg Pilocarpine HCl (Isopto Carpine 2% Opht Soln) 1 drop OU TID [facility] Last Admin: 04/17/17 09:17 Dose: 1 drop Timolol Maleate (Timoptic 0.5% Ophth Soln) 1 drop OU DAILY [facility] Last Admin: 04/17/17 09:15 Dose: 1 drop - Labs Labs: 04/17/17 05:30 04/17/17 05:30 - Additional Findings Additional findings: Physical exam: Constitutional- cooperative, awake, alert Head- NCAT, PERRL Eye- PERRL, EOMI ENT- normal exam, MMM. Neck- normal inspection, supple, no JVD Respiratory- CTAB, no wheezes rales rhonchi Cardiovascular- RRR, +S1, +S2 no MRG GI/Abdominal- normal bowel sounds, soft, no mass, no hsm Skin- warm, dry Extremities Exam- normal capillary refill, normal inspection Neurological Exam- alert, awake, oriented. 1/5 muscle strength to right upper and lower extremities. 5/5 muscle strength to left upper and lower extremities. + Aphasic. Psych- normal mood, normal affect Assessment and Plan - Assessment and Plan (Free Text) Plan: This is a 61 y/o female with MHx significant for HTN, HLD, DM2, and glaucoma who was brought into the ED at [facility] on 04/04/2017 by EMS for R sided weakness (UE /LE), inability to walk, and aphasia. Patient did not receive TPA as duration of symptoms was unclear/outside window for administration. Patient was admitted to [facility]. Had workup including brain MRI showing acute left MCA infarct. The patient was subsequently admitted to [facility] for acute rehab. Currently indicates weakness in R side of body is persistent. Patient is aphasic, but can understand speech and commands and can answer yes/no questions with nodding/ shaking of head. 1) CVA - Continue PT/OT/ST - Dr. Corado on consultation from neurology - Continue Keppra - Continue ASA - Statin 2) Type 2 DM - Continue Metformin - Continue regular insulin sliding scale with accucheks AC+HS - Moderate carbohydrate diet 3) Hypertension - Continue home losartan 4) Adjustment order with depressed mood - Dr. Masterson, psychiatry consultation - recommends observing the patient for now, if mood does not improve will start antidepressant 4) DVT prophylaxis - Lovenox
[2017-04-18] MEDS: Insulin Lispro (humaLOG) 100 Units/ml Inj SC SCH ×4 (06:33→21:17)
[2017-04-18] MEDS: Pilocarpine 2% Opht Soln OU SCH ×3 (08:57→17:02)
[2017-04-18] MEDS: Enoxaparin 40 mg Syringe SC SCH (08:58)
[2017-04-18] MEDS: Pantoprazole 40 mg EC Tab PO SCH (08:59)
--- NOTE | 2017-04-18 14:29 | CP.PCM.PN ---
Subjective - Date & Time of Evaluation Date of Evaluation: 04/18/17 Time of Evaluation: 09:30 - Subjective Subjective: no acute complaints of pain Objective - Vital Signs/Intake and Output Vital Signs (last 24 hours): Temp Pulse Resp BP Pulse Ox 97.5 F L 56 L 18 160/73 H 97 04/18/17 07:53 04/18/17 09:00 04/18/17 07:53 04/18/17 09:00 04/18/17 07:53 - Medications Medications: Current Medications Aspirin (Aspirin Chewable) 81 mg PO DAILY [facility] Last Admin: 04/18/17 09:00 Dose: 81 mg Atorvastatin Calcium (Lipitor) 80 mg PO HS [facility] Stop: 05/01/17 22:01 Last Admin: 04/17/17 21:33 Dose: 80 mg Enoxaparin Sodium (Lovenox) 40 mg SC DAILY [facility] PRN Reason: Protocol Last Admin: 04/18/17 08:58 Dose: 40 mg Insulin Human Lispro (Humalog) 0 units SC ACHS [facility] PRN Reason: Protocol Last Admin: 04/18/17 11:30 Dose: Not Given Levetiracetam (Keppra) 1,000 mg PO Q12 [facility] Last Admin: 04/18/17 08:59 Dose: 1,000 mg Losartan Potassium (Cozaar) 25 mg PO DAILY [facility] Last Admin: 04/18/17 09:00 Dose: 25 mg Metformin HCl (Glucophage) 500 mg PO BIDWM [facility] Last Admin: 04/18/17 09:00 Dose: 500 mg Pantoprazole Sodium (Protonix Ec Tab) 40 mg PO DAILY [facility] Last Admin: 04/18/17 08:59 Dose: 40 mg Pilocarpine HCl (Isopto Carpine 2% Opht Soln) 1 drop OU TID [facility] Last Admin: 04/18/17 12:11 Dose: 1 drop Timolol Maleate (Timoptic 0.5% Ophth Soln) 1 drop OU DAILY [facility] Last Admin: 04/18/17 08:58 Dose: 1 drop - Labs Labs: 04/17/17 05:30 04/17/17 05:30 - Head Exam Head Exam: ATRAUMATIC, NORMAL INSPECTION, NORMOCEPHALIC - Eye Exam Eye Exam: EOMI, Normal appearance, PERRL Pupil Exam: NORMAL ACCOMODATION, PERRL - ENT Exam ENT Exam: Mucous Membranes Moist, Normal Exam - Neck Exam Neck Exam: Full ROM, Normal Inspection. absent: Lymphadenopathy - Respiratory Exam Respiratory Exam: Clear to Ausculation Bilateral, NORMAL BREATHING PATTERN - GI/Abdominal Exam GI & Abdominal Exam: Soft, Normal Bowel Sounds. absent: Tenderness - Rectal Exam Rectal Exam: NORMAL INSPECTION - Exam Exam: Circumcision, NORMAL INSPECTION External exam: NORMAL EXTERNAL EXAM Speculum exam: NORMAL SPECULUM EXAM Bimanual exam: NORMAL BIMANUAL EXAM - Extremities Exam Extremities Exam: Full ROM, Normal Capillary Refill, Normal Inspection. absent : Joint Swelling, Pedal Edema - Back Exam Back Exam: NORMAL INSPECTION - Neurological Exam Neurological Exam: Abnormal Gait, Alert, Awake Neuro motor strength exam: Left Upper Extremity: 4, Right Upper Extremity: 3, Left Lower Extremity: 4, Right Lower Extremity: 3 - Psychiatric Exam Psychiatric exam: Normal Affect, Normal Mood - Skin Skin Exam: Dry, Intact, Normal Color Assessment and Plan (1) DM2 (diabetes mellitus, type 2) Status: Acute (2) DVT prophylaxis Status: Acute (3) HLD (hyperlipidemia) Status: Acute (4) HTN (hypertension) Status: Acute (5) Status post CVA Assessment & Plan: plan for Pt, Ot and rec , speech therapy Status: Acute
[2017-04-19] MEDS: Insulin Lispro (humaLOG) 100 Units/ml Inj SC SCH ×4 (06:32→21:20)
[2017-04-19] MEDS: Pilocarpine 2% Opht Soln OU SCH ×3 (08:14→17:54)
[2017-04-19] MEDS: Pantoprazole 40 mg EC Tab PO SCH (08:15)
[2017-04-19] MEDS: Enoxaparin 40 mg Syringe SC SCH (08:18)
--- NOTE | 2017-04-19 12:16 | PSY.TMCNF ---
Nursing - Vital Signs Vital Signs (Last 8 hours): Vital Signs 04/19/17 04/19/17 08:02 08:15 Temperature 97.2 F L Pulse Rate 55 L 60 Respiratory 20 Rate Blood Pressure 161/86 H 161/86 H O2 Sat by Pulse 100 Oximetry Pain: 0 - Medications/Other Issues Comment: Pt at moderate nutritional risk. goals: 1. Pt to consume 75-100% of meals(partially met, continue). 2. Blood glucoses to be between 70-180 mg/dl( met, continue). Follow-up due on 04/21/2017 - Consults Comment: Dr. Corado, Dr. Moralez - Toileting Toileting: Moderate Assistance - Bladder Management Bladder Pattern: Normal Voiding Method: Toilet - Bowel Management Bowel Pattern: Normal Bowel Management: Moderate Assistance Frequency of Accidents: 1 - Transfers Transfers: Moderate Assistance - ADL's ADL's: Moderate Assistance - Pain Management Comments: Denies pain - Patient/Family Teaching Comments: Post CVA care. Safety - Goals/Time Frame Comments: Per multidiscplinary team. Physical Therapy - Bed Mobility Bed Mobility: Verbal Cues, Contact Guard, Minimal Assistance - Transfers Wheelchair to Mat: Verbal Cues, Minimal Assistance, Moderate Assistance Sit to Stand: Verbal Cues, Contact Guard, Minimal Assistance Comment: RW - Ambulation Level of Assistance: Verbal Cues, Minimal Assistance, Moderate Assistance Distance (ft.): 75 Assistive Devices: Narrow base quad cane - Stair Negotiation Stairs: Level of Assistance: Verbal Cues, Minimal Assistance, Moderate Assistance Stairs: Assistive Devices: Left Handrail - Standing Balance Static Stand: Contact Guard Assist Dynamic Stand: Minimal Assistance, Moderate Assistance - Pain Pain (assessed during therapy session): 0 Comment: pt denies pain - Insight/Carryover Insight/Carryover: Fair - Patient/Family Education Comment: -safety, therapy schedule, POC, use of call basilio, stroke recovery, therapy goals, discharge planning, use of DME, exercises for in room, WC mobility - Assessment/Plan Assessment: Pt is agreeable to participate in 1:1 and group recreation therapy sessions. Pt has participated in card tasks, matching tasks, and direction following tasks. Pt at times require min verbal cues for error recognition and presents with decrease R side visual awareness. Pt demonstrates increase carryover of task rules and demonstrates increase attention to task. Pt participated in bingo task and was mod I with task after setup. Pt presents decrease tearfulness during sessions compared to last week and has demonstrated improved mood state. Pt is attempting to initiate verbalizing more words in conversations. Pt will continue to benefit from participating in recreation therapy sessions throughout stay on unit. - Goals Timeframe: 1 week Goals: 1 flight of steps with single rail with min A. 125 feet with NBQC with CG with bracing to RLE as needed. sit to/from stand with CG. SPT with min A. CG with all bed/mat mobility - Provider Therapist: Sofie Hendrix, PT, DPT License Number: [id number] Occupational Therapy - Arousal/Attention/Orientation Patient Orientation: Person, Place, Appropriate to Age, Appropriate to Situation - ADL/IADL Self Feeding: Supervision, Set-up Help, Minimal Assistance Grooming: Minimal Assistance Bathing-Upper Extremity: Minimal Assistance Bathing-Lower Extremity: Minimal Assistance, Moderate Assistance Dressing-Upper Extremity: Moderate Assistance Dressing-Lower Extremity: Moderate Assistance - Sitting Balance Static Sitting: Supervision Dynamic Sitting: Contact Guard Assist - Transfers Wheelchair to Bed Transfers: Minimal Assistance Toilet Transfers: Minimal Assistance - Wheelchair Management Level of Assistance: Minimal Assistance - Upper Extremity Status Right Upper Extremity Comment: R sided hemiparesis 0/5 Left Upper Extremity Comment: WFL - Pain Pain (assessed during therapy session): 0 Comment: pt denies pain - Insight/Carryover Insight/Carryover: Fair - Patient/Family Education Comment: -safety, therapy schedule, POC, use of call basilio, stroke recovery, therapy goals, discharge planning, use of DME, exercises for in room, WC mobility - Assessment/Plan Assessment: Pt is agreeable to participate in 1:1 and group recreation therapy sessions. Pt has participated in card tasks, matching tasks, and direction following tasks. Pt at times require min verbal cues for error recognition and presents with decrease R side visual awareness. Pt demonstrates increase carryover of task rules and demonstrates increase attention to task. Pt participated in bingo task and was mod I with task after setup. Pt presents decrease tearfulness during sessions compared to last week and has demonstrated improved mood state. Pt is attempting to initiate verbalizing more words in conversations. Pt will continue to benefit from participating in recreation therapy sessions throughout stay on unit. - Goals Timeframe: 1 week Goals: 1 flight of steps with single rail with min A. 125 feet with NBQC with CG with bracing to RLE as needed. sit to/from stand with CG. SPT with min A. CG with all bed/mat mobility - Provider Therapist: ANNE Man Speech Therapy - Consult Information Patient on Program: Yes Medical Diagnosis: CVA Treatment Diagnosis: -severe apraxia of speech/expressive aphasia. -moderate receptive aphasia - Assessment Expressive Language Impairment: Severe Receptive Language Impairment: Moderate Speech/Articulation Impairment: Severe - Plan Assessment: Pt is agreeable to participate in 1:1 and group recreation therapy sessions. Pt has participated in card tasks, matching tasks, and direction following tasks. Pt at times require min verbal cues for error recognition and presents with decrease R side visual awareness. Pt demonstrates increase carryover of task rules and demonstrates increase attention to task. Pt participated in bingo task and was mod I with task after setup. Pt presents decrease tearfulness during sessions compared to last week and has demonstrated improved mood state. Pt is attempting to initiate verbalizing more words in conversations. Pt will continue to benefit from participating in recreation therapy sessions throughout stay on unit. - Provider Therapist: Leslie Villanueva License Number: [id number] Recreational Therapy - Participation Participation: Participates in Individual and/or Group Sessions - Attendance Attendance: 3-5 times per week - Activities Leisure Activities: Cards and Games - Socialization Level of Socialization: Requires 1:1 guidance to respond, Socialization severely limited - Diversional Time Diversional Time: cards, games - Assessment Assessment/Plan: Pt is agreeable to participate in 1:1 and group recreation therapy sessions. Pt has participated in card tasks, matching tasks, and direction following tasks. Pt at times require min verbal cues for error recognition and presents with decrease R side visual awareness. Pt demonstrates increase carryover of task rules and demonstrates increase attention to task. Pt participated in bingo task and was mod I with task after setup. Pt presents decrease tearfulness during sessions compared to last week and has demonstrated improved mood state. Pt is attempting to initiate verbalizing more words in conversations. Pt will continue to benefit from participating in recreation therapy sessions throughout stay on unit. Problems Currently Limiting Participation: aphasia, R UE weakness, decrease leisure awareness level Goals and Time Frame: Pt will be encouraged to participate in 1:1 and group recreation therapy sessions 3-5x week to improve initiation for speech, attention to task, arousal level, direction following, and command following. - Provider Therapist: Elizabeth Medina, [employer] #[id number] Nutrition - Current Diet Current Diet/ Supplement/ Feedings: Moderate consistent CHO 2 gram Na low fat/ low cholesterol diet - Appetite Percent Meal Consumed: 75-100% - Comments Comments: Post CVA care. Safety - Assessment/Goals/Time Frame Assessment/Goals/Time Frame: Pt at moderate nutritional risk. goals: 1. Pt to consume 75-100% of meals(partially met, continue). 2. Blood glucoses to be between 70-180 mg/dl(met, continue). Follow-up due on 04/21/2017 - Provider Provider: Alanna Petty RD Case Management - Psychosocial Assessment Support Systems: Navneet Hewitt (sibling)- [phone]. Francisco J Hewitt ( sibling)- [phone] Psychological Interventions/Needs: Patient is alert and oriented with severe expressive aphasia. Discharge Concerns: Patient currently requiring min-mod A for functional mobility Patient/Family Meeting: CM met with patient/family and rehab team Intervention/Goal/Outcome:: 1. Goal: Supervision overall. 2. Plan: Home with VNS and family support/assistance. 3. DME needs. 4. caregiver training. 5. f/u appts. 6. continued emotional support as patient with crying spells. 7. continued stay auth, LAD: 04/13 - Discharge Plan Discharge Plan: Home with services - Provider Provider: MIGUEL Fairchild, [employer] License Number: [id number] Rehabilitation Plan - Treatment Plan Treatment Plan: Physical Therapy, Occupational Therapy, Speech, Dietary, Patient /Family Education - Recommendation Recommendation: Physical Therapy, Occupational Therapy, Speech, Dietary, Patient /Family Education - Discharge Plan Discharge to: Home (may 01)
--- NOTE | 2017-04-19 12:34 | CP.PCM.PN ---
Subjective - Date & Time of Evaluation Date of Evaluation: 04/19/17 Time of Evaluation: 10:15 - Subjective Subjective: Patient seen and examined. Denied any complaint. Objective - Vital Signs/Intake and Output Vital Signs (last 24 hours): Temp Pulse Resp BP Pulse Ox 97.2 F L 60 20 161/86 H 100 04/19/17 08:02 04/19/17 08:15 04/19/17 08:02 04/19/17 08:15 04/19/17 08:02 - Medications Medications: Current Medications Aspirin (Aspirin Chewable) 81 mg PO DAILY [facility] Last Admin: 04/19/17 08:15 Dose: 81 mg Atorvastatin Calcium (Lipitor) 80 mg PO HS [facility] Stop: 05/01/17 22:01 Last Admin: 04/18/17 21:00 Dose: 80 mg Enoxaparin Sodium (Lovenox) 40 mg SC DAILY [facility] PRN Reason: Protocol Last Admin: 04/19/17 08:18 Dose: 40 mg Insulin Human Lispro (Humalog) 0 units SC ACHS [facility] PRN Reason: Protocol Last Admin: 04/19/17 06:32 Dose: Not Given Levetiracetam (Keppra) 1,000 mg PO Q12 [facility] Last Admin: 04/19/17 08:15 Dose: 1,000 mg Losartan Potassium (Cozaar) 25 mg PO DAILY [facility] Last Admin: 04/19/17 08:15 Dose: 25 mg Metformin HCl (Glucophage) 500 mg PO BIDWM [facility] Last Admin: 04/19/17 08:25 Dose: 500 mg Pantoprazole Sodium (Protonix Ec Tab) 40 mg PO DAILY [facility] Last Admin: 04/19/17 08:15 Dose: 40 mg Pilocarpine HCl (Isopto Carpine 2% Opht Soln) 1 drop OU TID [facility] Last Admin: 04/19/17 08:14 Dose: 1 drop Timolol Maleate (Timoptic 0.5% Ophth Soln) 1 drop OU DAILY [facility] Last Admin: 04/19/17 08:17 Dose: 1 drop - Labs Labs: 04/17/17 05:30 04/17/17 05:30 - Constitutional Appears: No Acute Distress - Head Exam Head Exam: ATRAUMATIC - Eye Exam Eye Exam: absent: Scleral icterus - ENT Exam ENT Exam: Mucous Membranes Moist - Neck Exam Neck Exam: absent: Meningismus - Respiratory Exam Respiratory Exam: absent: Rhonchi, Wheezes, Respiratory Distress - Cardiovascular Exam Cardiovascular Exam: REGULAR RHYTHM, +S1, +S2 - GI/Abdominal Exam GI & Abdominal Exam: Soft. absent: Tenderness - Rectal Exam Rectal Exam: Deferred - Neurological Exam Neurological Exam: Alert, Oriented x3 - Psychiatric Exam Psychiatric exam: Normal Affect - Skin Skin Exam: Dry, Intact Assessment and Plan - Assessment and Plan (Free Text) Assessment: 61 yo female with history of HTN, DM2, HLD and Glaucoma was brought to [facility] ER on 04/04/2017 because of right sided weakness and aphasia. MRI showed acute left MCA infarct. She was admitted and managed as acute CVA and later on transferred to [facility] for acute rehab. 1. CVA continue ASA, statin and Vicente Corado on neuro consult 2. DM2 BS controlled continue Metformin 3. HTN BP stable continue Losartan 4. DVT prophylaxis on Lovenox
--- NOTE | 2017-04-19 14:17 | CP.PCM.PN ---
Subjective - Date & Time of Evaluation Date of Evaluation: 04/15/17 Time of Evaluation: 13:00 - Subjective Subjective: no acute complaints at present Objective - Vital Signs/Intake and Output Vital Signs (last 24 hours): Temp Pulse Resp BP Pulse Ox 97.2 F L 60 20 161/86 H 100 04/19/17 08:02 04/19/17 08:15 04/19/17 08:02 04/19/17 08:15 04/19/17 08:02 - Medications Medications: Current Medications Aspirin (Aspirin Chewable) 81 mg PO DAILY [facility] Last Admin: 04/19/17 08:15 Dose: 81 mg Atorvastatin Calcium (Lipitor) 80 mg PO HS [facility] Stop: 05/01/17 22:01 Last Admin: 04/18/17 21:00 Dose: 80 mg Enoxaparin Sodium (Lovenox) 40 mg SC DAILY [facility] PRN Reason: Protocol Last Admin: 04/19/17 08:18 Dose: 40 mg Insulin Human Lispro (Humalog) 0 units SC ACHS [facility] PRN Reason: Protocol Last Admin: 04/19/17 11:56 Dose: Not Given Levetiracetam (Keppra) 1,000 mg PO Q12 [facility] Last Admin: 04/19/17 08:15 Dose: 1,000 mg Losartan Potassium (Cozaar) 25 mg PO DAILY [facility] Last Admin: 04/19/17 08:15 Dose: 25 mg Metformin HCl (Glucophage) 500 mg PO BIDWM [facility] Last Admin: 04/19/17 08:25 Dose: 500 mg Pantoprazole Sodium (Protonix Ec Tab) 40 mg PO DAILY [facility] Last Admin: 04/19/17 08:15 Dose: 40 mg Pilocarpine HCl (Isopto Carpine 2% Opht Soln) 1 drop OU TID [facility] Last Admin: 04/19/17 12:57 Dose: 1 drop Timolol Maleate (Timoptic 0.5% Ophth Soln) 1 drop OU DAILY [facility] Last Admin: 04/19/17 08:17 Dose: 1 drop - Labs Labs: 04/17/17 05:30 04/17/17 05:30 - Head Exam Head Exam: ATRAUMATIC, NORMAL INSPECTION, NORMOCEPHALIC - Eye Exam Eye Exam: EOMI, Normal appearance, PERRL Pupil Exam: NORMAL ACCOMODATION - ENT Exam ENT Exam: Mucous Membranes Moist, Normal Exam - Neck Exam Neck Exam: Normal Inspection - Respiratory Exam Respiratory Exam: NORMAL BREATHING PATTERN - Cardiovascular Exam Cardiovascular Exam: REGULAR RHYTHM - GI/Abdominal Exam GI & Abdominal Exam: Soft, Normal Bowel Sounds - Rectal Exam Rectal Exam: NORMAL INSPECTION - Exam External exam: NORMAL EXTERNAL EXAM - Extremities Exam Extremities Exam: Full ROM, Normal Capillary Refill - Back Exam Back Exam: NORMAL INSPECTION - Neurological Exam Neurological Exam: Alert, Awake Neuro motor strength exam: Left Upper Extremity: 2/1, Right Upper Extremity: 3, Left Lower Extremity: 2/1, Right Lower Extremity: 3 - Psychiatric Exam Psychiatric exam: Normal Affect, Normal Mood - Skin Skin Exam: Dry, Intact Assessment and Plan (1) DM2 (diabetes mellitus, type 2) Status: Acute (2) DVT prophylaxis Status: Acute (3) HLD (hyperlipidemia) Status: Acute (4) HTN (hypertension) Status: Acute (5) Status post CVA Assessment & Plan: plan for pt, Ot , rec aned speech therapy Status: Acute
--- NOTE | 2017-04-19 14:19 | CP.PCM.PN ---
Subjective - Date & Time of Evaluation Date of Evaluation: 04/19/17 Time of Evaluation: 10:00 - Subjective Subjective: no acute neck or back pain Objective - Vital Signs/Intake and Output Vital Signs (last 24 hours): Temp Pulse Resp BP Pulse Ox 97.2 F L 60 20 161/86 H 100 04/19/17 08:02 04/19/17 08:15 04/19/17 08:02 04/19/17 08:15 04/19/17 08:02 - Medications Medications: Current Medications Aspirin (Aspirin Chewable) 81 mg PO DAILY [facility] Last Admin: 04/19/17 08:15 Dose: 81 mg Atorvastatin Calcium (Lipitor) 80 mg PO HS [facility] Stop: 05/01/17 22:01 Last Admin: 04/18/17 21:00 Dose: 80 mg Enoxaparin Sodium (Lovenox) 40 mg SC DAILY [facility] PRN Reason: Protocol Last Admin: 04/19/17 08:18 Dose: 40 mg Insulin Human Lispro (Humalog) 0 units SC ACHS [facility] PRN Reason: Protocol Last Admin: 04/19/17 11:56 Dose: Not Given Levetiracetam (Keppra) 1,000 mg PO Q12 [facility] Last Admin: 04/19/17 08:15 Dose: 1,000 mg Losartan Potassium (Cozaar) 25 mg PO DAILY [facility] Last Admin: 04/19/17 08:15 Dose: 25 mg Metformin HCl (Glucophage) 500 mg PO BIDWM [facility] Last Admin: 04/19/17 08:25 Dose: 500 mg Pantoprazole Sodium (Protonix Ec Tab) 40 mg PO DAILY [facility] Last Admin: 04/19/17 08:15 Dose: 40 mg Pilocarpine HCl (Isopto Carpine 2% Opht Soln) 1 drop OU TID [facility] Last Admin: 04/19/17 12:57 Dose: 1 drop Timolol Maleate (Timoptic 0.5% Ophth Soln) 1 drop OU DAILY [facility] Last Admin: 04/19/17 08:17 Dose: 1 drop - Labs Labs: 04/17/17 05:30 04/17/17 05:30 - Head Exam Head Exam: ATRAUMATIC, NORMAL INSPECTION, NORMOCEPHALIC - Eye Exam Eye Exam: EOMI, Normal appearance, PERRL Pupil Exam: NORMAL ACCOMODATION - ENT Exam ENT Exam: Mucous Membranes Moist, Normal Exam - Neck Exam Neck Exam: Full ROM, Normal Inspection - Respiratory Exam Respiratory Exam: Clear to Ausculation Bilateral, NORMAL BREATHING PATTERN - Cardiovascular Exam Cardiovascular Exam: REGULAR RHYTHM - GI/Abdominal Exam GI & Abdominal Exam: Soft, Normal Bowel Sounds - Rectal Exam Rectal Exam: NORMAL INSPECTION - Exam External exam: NORMAL EXTERNAL EXAM - Extremities Exam Extremities Exam: Full ROM, Normal Capillary Refill, Normal Inspection - Back Exam Back Exam: NORMAL INSPECTION - Neurological Exam Neurological Exam: Alert, Awake Neuro motor strength exam: Left Upper Extremity: 3, Right Upper Extremity: 4, Left Lower Extremity: 3, Right Lower Extremity: 4 - Psychiatric Exam Psychiatric exam: Normal Affect, Normal Mood - Skin Skin Exam: Dry, Intact Assessment and Plan (1) DM2 (diabetes mellitus, type 2) Status: Acute (2) DVT prophylaxis Status: Acute (3) HLD (hyperlipidemia) Status: Acute (4) HTN (hypertension) Status: Acute (5) Status post CVA Assessment & Plan: plan to continue with pt, ot, rec and speech therapy Dc [facility] 05/01 then for subacute Status: Acute
--- NOTE | 2017-04-19 14:32 | CP.PCM.PN ---
Subjective - Date & Time of Evaluation Date of Evaluation: 04/17/17 Time of Evaluation: 11:00 - Subjective Subjective: no acute neck or back pain Objective - Vital Signs/Intake and Output Vital Signs (last 24 hours): Temp Pulse Resp BP Pulse Ox 97.2 F L 60 20 161/86 H 100 04/19/17 08:02 04/19/17 08:15 04/19/17 08:02 04/19/17 08:15 04/19/17 08:02 - Medications Medications: Current Medications Aspirin (Aspirin Chewable) 81 mg PO DAILY [facility] Last Admin: 04/19/17 08:15 Dose: 81 mg Atorvastatin Calcium (Lipitor) 80 mg PO HS [facility] Stop: 05/01/17 22:01 Last Admin: 04/18/17 21:00 Dose: 80 mg Enoxaparin Sodium (Lovenox) 40 mg SC DAILY [facility] PRN Reason: Protocol Last Admin: 04/19/17 08:18 Dose: 40 mg Insulin Human Lispro (Humalog) 0 units SC ACHS [facility] PRN Reason: Protocol Last Admin: 04/19/17 11:56 Dose: Not Given Levetiracetam (Keppra) 1,000 mg PO Q12 [facility] Last Admin: 04/19/17 08:15 Dose: 1,000 mg Losartan Potassium (Cozaar) 25 mg PO DAILY [facility] Last Admin: 04/19/17 08:15 Dose: 25 mg Metformin HCl (Glucophage) 500 mg PO BIDWM [facility] Last Admin: 04/19/17 08:25 Dose: 500 mg Pantoprazole Sodium (Protonix Ec Tab) 40 mg PO DAILY [facility] Last Admin: 04/19/17 08:15 Dose: 40 mg Pilocarpine HCl (Isopto Carpine 2% Opht Soln) 1 drop OU TID [facility] Last Admin: 04/19/17 12:57 Dose: 1 drop Timolol Maleate (Timoptic 0.5% Ophth Soln) 1 drop OU DAILY [facility] Last Admin: 04/19/17 08:17 Dose: 1 drop - Labs Labs: 04/17/17 05:30 04/17/17 05:30 - Head Exam Head Exam: ATRAUMATIC, NORMAL INSPECTION, NORMOCEPHALIC - Eye Exam Eye Exam: EOMI, Normal appearance, PERRL Pupil Exam: NORMAL ACCOMODATION - ENT Exam ENT Exam: Mucous Membranes Moist, Normal Exam - Neck Exam Neck Exam: Normal Inspection - Respiratory Exam Respiratory Exam: NORMAL BREATHING PATTERN - Cardiovascular Exam Cardiovascular Exam: REGULAR RHYTHM - GI/Abdominal Exam GI & Abdominal Exam: Soft, Normal Bowel Sounds - Rectal Exam Rectal Exam: NORMAL INSPECTION - Exam External exam: NORMAL EXTERNAL EXAM - Extremities Exam Extremities Exam: Full ROM, Normal Capillary Refill, Normal Inspection - Back Exam Back Exam: NORMAL INSPECTION - Neurological Exam Neurological Exam: Alert, Awake Neuro motor strength exam: Left Upper Extremity: 2/1, Right Upper Extremity: 3, Left Lower Extremity: 2/1, Right Lower Extremity: 3 - Psychiatric Exam Psychiatric exam: Normal Affect, Normal Mood - Skin Skin Exam: Dry, Normal Color Assessment and Plan (1) DM2 (diabetes mellitus, type 2) Status: Acute (2) DVT prophylaxis Status: Acute (3) HLD (hyperlipidemia) Status: Acute (4) HTN (hypertension) Status: Acute (5) Status post CVA Assessment & Plan: range of motion, strenghtening transfers and gait training Status: Acute
[2017-04-20 06:38] LABS: HEMOGLOBIN 13.7 g/dL (12.0-16.0); MEAN CELL VOLUME 81.5 fl (81.0-99.0); MEAN CORPUSCULAR HEMOGLOBIN 26.1 pg (27.0-31.0); MEAN CORPUSCULAR HGB CONC 32.1 g/dL (33.0-37.0); RBC 5.24 Mil/uL (3.80-5.20); WHITE BLOOD COUNT 9.1 K/uL (4.8-10.8)
[2017-04-20 06:44] LABS: BLOOD UREA NITROGEN 14 mg/dl (7-17); GFR AFRICAN-AMERICAN > 60; GFR NON-AFRICAN AMERICAN > 60
[2017-04-20] MEDS: Insulin Lispro (humaLOG) 100 Units/ml Inj SC SCH ×4 (07:55→21:06)
[2017-04-20] MEDS: Pilocarpine 2% Opht Soln OU SCH ×3 (08:28→17:21)
[2017-04-20] MEDS: Pantoprazole 40 mg EC Tab PO SCH (08:28)
[2017-04-20] MEDS: Enoxaparin 40 mg Syringe SC SCH (08:29)
[2017-04-21] MEDS: Insulin Lispro (humaLOG) 100 Units/ml Inj SC SCH ×4 (07:30→21:58)
[2017-04-21] MEDS: Enoxaparin 40 mg Syringe SC SCH (08:45)
[2017-04-21] MEDS: Pilocarpine 2% Opht Soln OU SCH ×3 (08:45→17:06)
[2017-04-21] MEDS: Pantoprazole 40 mg EC Tab PO SCH (08:46)
--- NOTE | 2017-04-21 10:42 | CP.PCM.PN ---
Subjective - Date & Time of Evaluation Date of Evaluation: 04/21/17 Time of Evaluation: 09:00 - Subjective Subjective: no acute neck or back pain Objective - Vital Signs/Intake and Output Vital Signs (last 24 hours): Temp Pulse Resp BP Pulse Ox 97.2 F L 57 L 20 151/76 H 98 04/21/17 09:28 04/21/17 09:28 04/21/17 09:28 04/21/17 09:28 04/21/17 09:28 - Medications Medications: Current Medications Aspirin (Aspirin Chewable) 81 mg PO DAILY [facility] Last Admin: 04/21/17 08:44 Dose: 81 mg Atorvastatin Calcium (Lipitor) 80 mg PO HS [facility] Stop: 05/01/17 22:01 Last Admin: 04/20/17 21:00 Dose: 80 mg Enoxaparin Sodium (Lovenox) 40 mg SC DAILY [facility] PRN Reason: Protocol Last Admin: 04/21/17 08:45 Dose: 40 mg Insulin Human Lispro (Humalog) 0 units SC ACHS [facility] PRN Reason: Protocol Last Admin: 04/21/17 07:30 Dose: Not Given Levetiracetam (Keppra) 1,000 mg PO Q12 [facility] Last Admin: 04/21/17 08:46 Dose: 1,000 mg Losartan Potassium (Cozaar) 25 mg PO DAILY [facility] Last Admin: 04/21/17 08:44 Dose: 25 mg Metformin HCl (Glucophage) 500 mg PO BIDWM [facility] Last Admin: 04/21/17 08:44 Dose: 500 mg Pantoprazole Sodium (Protonix Ec Tab) 40 mg PO DAILY [facility] Last Admin: 04/21/17 08:46 Dose: 40 mg Pilocarpine HCl (Isopto Carpine 2% Opht Soln) 1 drop OU TID [facility] Last Admin: 04/21/17 08:45 Dose: 1 drop Timolol Maleate (Timoptic 0.5% Ophth Soln) 1 drop OU DAILY [facility] Last Admin: 04/21/17 08:45 Dose: 1 drop - Labs Labs: 04/20/17 05:25 04/20/17 05:25 - Head Exam Head Exam: ATRAUMATIC, NORMAL INSPECTION, NORMOCEPHALIC - Eye Exam Eye Exam: EOMI, Normal appearance, PERRL Pupil Exam: NORMAL ACCOMODATION, PERRL - ENT Exam ENT Exam: Mucous Membranes Moist, Normal Exam - Neck Exam Neck Exam: Full ROM, Normal Inspection. absent: Lymphadenopathy - Respiratory Exam Respiratory Exam: Clear to Ausculation Bilateral, NORMAL BREATHING PATTERN - Cardiovascular Exam Cardiovascular Exam: REGULAR RHYTHM, +S1, +S2. absent: Murmur - GI/Abdominal Exam GI & Abdominal Exam: Soft, Normal Bowel Sounds. absent: Tenderness - Rectal Exam Rectal Exam: NORMAL INSPECTION - Exam External exam: absent: Ecchymosis, Erythema, Lacerations, Lesions, NORMAL EXTERNAL EXAM, Swelling - Extremities Exam Extremities Exam: Full ROM, Normal Capillary Refill, Normal Inspection. absent : Joint Swelling, Pedal Edema - Back Exam Back Exam: NORMAL INSPECTION - Neurological Exam Neurological Exam: Alert, Awake Neuro motor strength exam: Left Upper Extremity: 2/1, Right Upper Extremity: 3, Left Lower Extremity: 2/1, Right Lower Extremity: 3 - Psychiatric Exam Psychiatric exam: Normal Affect, Normal Mood - Skin Skin Exam: Dry, Intact Assessment and Plan (1) DM2 (diabetes mellitus, type 2) Status: Acute (2) DVT prophylaxis Status: Acute (3) HLD (hyperlipidemia) Status: Acute (4) HTN (hypertension) Status: Acute (5) Status post CVA Assessment & Plan: plan for physical, occupational therapy, rec contiue with rehab, monitor skin and bowel Status: Acute
--- NOTE | 2017-04-21 10:42 | CP.PCM.PN ---
Subjective - Date & Time of Evaluation Date of Evaluation: 04/21/17 Time of Evaluation: 10:20 - Subjective Subjective: Patient seen and examined. Aphasic and only able to answer yes or no. Denied any complaint. Objective - Vital Signs/Intake and Output Vital Signs (last 24 hours): Temp Pulse Resp BP Pulse Ox 97.2 F L 57 L 20 151/76 H 98 04/21/17 09:28 04/21/17 09:28 04/21/17 09:28 04/21/17 09:28 04/21/17 09:28 - Medications Medications: Current Medications Aspirin (Aspirin Chewable) 81 mg PO DAILY [facility] Last Admin: 04/21/17 08:44 Dose: 81 mg Atorvastatin Calcium (Lipitor) 80 mg PO HS [facility] Stop: 05/01/17 22:01 Last Admin: 04/20/17 21:00 Dose: 80 mg Enoxaparin Sodium (Lovenox) 40 mg SC DAILY [facility] PRN Reason: Protocol Last Admin: 04/21/17 08:45 Dose: 40 mg Insulin Human Lispro (Humalog) 0 units SC ACHS [facility] PRN Reason: Protocol Last Admin: 04/21/17 07:30 Dose: Not Given Levetiracetam (Keppra) 1,000 mg PO Q12 [facility] Last Admin: 04/21/17 08:46 Dose: 1,000 mg Losartan Potassium (Cozaar) 25 mg PO DAILY [facility] Last Admin: 04/21/17 08:44 Dose: 25 mg Metformin HCl (Glucophage) 500 mg PO BIDWM [facility] Last Admin: 04/21/17 08:44 Dose: 500 mg Pantoprazole Sodium (Protonix Ec Tab) 40 mg PO DAILY [facility] Last Admin: 04/21/17 08:46 Dose: 40 mg Pilocarpine HCl (Isopto Carpine 2% Opht Soln) 1 drop OU TID [facility] Last Admin: 04/21/17 08:45 Dose: 1 drop Timolol Maleate (Timoptic 0.5% Ophth Soln) 1 drop OU DAILY [facility] Last Admin: 04/21/17 08:45 Dose: 1 drop - Labs Labs: 04/20/17 05:25 04/20/17 05:25 - Constitutional Appears: No Acute Distress - Head Exam Head Exam: ATRAUMATIC - Eye Exam Eye Exam: absent: Scleral icterus - ENT Exam ENT Exam: Mucous Membranes Moist - Neck Exam Neck Exam: absent: Meningismus - Respiratory Exam Respiratory Exam: absent: Rhonchi, Wheezes, Respiratory Distress - Cardiovascular Exam Cardiovascular Exam: REGULAR RHYTHM, +S1, +S2 - GI/Abdominal Exam GI & Abdominal Exam: Soft. absent: Tenderness - Rectal Exam Rectal Exam: Deferred - Neurological Exam Neurological Exam: Alert - Psychiatric Exam Psychiatric exam: Normal Affect - Skin Skin Exam: Dry, Intact Assessment and Plan - Assessment and Plan (Free Text) Assessment: 61 yo female with history of HTN, DM2, HLD and Glaucoma was brought to [facility] on 04/04/2017 because of right sided weakness and aphasia. MRI showed acute left MCA infarct. She was admitted and managed as acute CVA and later on transferred to [facility] for acute rehab. 1. CVA aphasic continue ASA, statin on Keppra 1000mg PO q 12hrs Dr Corado on neuro consult 2. DM2 BS controlled continue Metformin 500mg PO BID 3. HTN BP slightly elevated will increase Losartan to 50mg PO daily 4. DVT prophylaxis on Lovenox
[2017-04-22] MEDS: Insulin Lispro (humaLOG) 100 Units/ml Inj SC SCH ×4 (07:30→21:33)
[2017-04-22] MEDS: Pilocarpine 2% Opht Soln OU SCH ×3 (08:55→17:32)
[2017-04-22] MEDS: Enoxaparin 40 mg Syringe SC SCH (08:56)
[2017-04-22] MEDS: Pantoprazole 40 mg EC Tab PO SCH (08:57)
[2017-04-23] MEDS: Insulin Lispro (humaLOG) 100 Units/ml Inj SC SCH ×4 (06:49→21:22)
[2017-04-23 07:10] LABS: HEMOGLOBIN 13.5 g/dL (12.0-16.0); MEAN CELL VOLUME 80.7 fl (81.0-99.0); MEAN CORPUSCULAR HEMOGLOBIN 26.1 pg (27.0-31.0); MEAN CORPUSCULAR HGB CONC 32.4 g/dL (33.0-37.0); RBC 5.17 Mil/uL (3.80-5.20); RED CELL DISTRIBUTION WIDTH 13.7 % (11.5-14.5); WHITE BLOOD COUNT 10.3 K/uL (4.8-10.8)
[2017-04-23 07:21] LABS: BLOOD UREA NITROGEN 10 mg/dl (7-17); CALCIUM 9.4 mg/dL (8.4-10.2); GFR AFRICAN-AMERICAN > 60; GFR NON-AFRICAN AMERICAN > 60
[2017-04-23] MEDS: Pilocarpine 2% Opht Soln OU SCH ×3 (08:21→17:36)
[2017-04-23] MEDS: Enoxaparin 40 mg Syringe SC SCH (08:21)
[2017-04-23] MEDS: Pantoprazole 40 mg EC Tab PO SCH (08:23)
[2017-04-24] MEDS: Insulin Lispro (humaLOG) 100 Units/ml Inj SC SCH ×2 (06:34→11:51)
[2017-04-24] MEDS: Pilocarpine 2% Opht Soln OU SCH ×3 (08:42→16:40)
[2017-04-24] MEDS: Pantoprazole 40 mg EC Tab PO SCH (08:43)
[2017-04-24] MEDS: Enoxaparin 40 mg Syringe SC SCH (08:43)
--- NOTE | 2017-04-24 17:42 | CP.PCM.PN ---
Subjective - Date & Time of Evaluation Date of Evaluation: 04/24/17 Time of Evaluation: 10:25 - Subjective Subjective: Patient seen and examined. Aphasic but no complaint. Objective - Vital Signs/Intake and Output Vital Signs (last 24 hours): Temp Pulse Resp BP Pulse Ox 97.4 F L 61 20 145/83 98 04/24/17 10:00 04/24/17 10:00 04/24/17 10:00 04/24/17 10:00 04/24/17 10:00 - Medications Medications: Current Medications Aspirin (Aspirin Chewable) 81 mg PO DAILY [facility] Last Admin: 04/24/17 08:43 Dose: 81 mg Atorvastatin Calcium (Lipitor) 80 mg PO HS [facility] Stop: 05/01/17 22:01 Last Admin: 04/23/17 21:15 Dose: 80 mg Enoxaparin Sodium (Lovenox) 40 mg SC DAILY [facility] PRN Reason: Protocol Last Admin: 04/24/17 08:43 Dose: 40 mg Insulin Human Lispro (Humalog) 0 units SC 0630 [facility] PRN Reason: Protocol Levetiracetam (Keppra) 1,000 mg PO Q12 [facility] Last Admin: 04/24/17 08:44 Dose: 1,000 mg Losartan Potassium (Cozaar) 50 mg PO DAILY [facility] Last Admin: 04/24/17 08:44 Dose: 50 mg Metformin HCl (Glucophage) 500 mg PO BIDWM [facility] Last Admin: 04/24/17 16:40 Dose: 500 mg Pantoprazole Sodium (Protonix Ec Tab) 40 mg PO DAILY [facility] Last Admin: 04/24/17 08:43 Dose: 40 mg Pilocarpine HCl (Isopto Carpine 2% Opht Soln) 1 drop OU TID [facility] Last Admin: 04/24/17 16:40 Dose: 1 drop Timolol Maleate (Timoptic 0.5% Ophth Soln) 1 drop OU DAILY [facility] Last Admin: 04/24/17 08:42 Dose: 1 drop - Labs Labs: 04/23/17 06:30 04/23/17 06:30 - Constitutional Appears: No Acute Distress - Head Exam Head Exam: ATRAUMATIC - Eye Exam Eye Exam: absent: Scleral icterus - ENT Exam ENT Exam: Mucous Membranes Moist - Neck Exam Neck Exam: absent: Meningismus - Respiratory Exam Respiratory Exam: absent: Rales, Rhonchi, Wheezes, Respiratory Distress - Cardiovascular Exam Cardiovascular Exam: REGULAR RHYTHM, +S1, +S2 - GI/Abdominal Exam GI & Abdominal Exam: Soft. absent: Tenderness - Rectal Exam Rectal Exam: Deferred - Neurological Exam Neurological Exam: Alert - Psychiatric Exam Psychiatric exam: Normal Affect - Skin Skin Exam: Dry, Intact Assessment and Plan - Assessment and Plan (Free Text) Assessment: 61 yo female with history of HTN, DM2, HLD and Glaucoma was brought to [facility] on 04/04/2017 because of right sided weakness and aphasia. MRI showed acute left MCA infarct. She was admitted and managed as acute CVA and later on transferred to [facility] for acute rehab. 1. CVA still aphasic continue ASA, statin continue Keppra 1000mg PO q 12hrs Dr Corado on neuro consult 2. DM2 BS controlled continue Metformin 500mg PO BID 3. HTN BP stable Losartan to 50mg PO daily 4. DVT prophylaxis on Lovenox
[2017-04-25] MEDS: Insulin Lispro (humaLOG) 100 Units/ml Inj SC SCH (06:37)
[2017-04-25] MEDS: Enoxaparin 40 mg Syringe SC SCH (08:43)
[2017-04-25] MEDS: Pantoprazole 40 mg EC Tab PO SCH (08:45)
[2017-04-25] MEDS: Pilocarpine 2% Opht Soln OU SCH ×3 (08:46→17:27)
--- NOTE | 2017-04-25 12:40 | CP.PCM.PN ---
Subjective - Date & Time of Evaluation Date of Evaluation: 04/23/17 Time of Evaluation: 12:00 - Subjective Subjective: no acute neck or back pain Objective - Vital Signs/Intake and Output Vital Signs (last 24 hours): Temp Pulse Resp BP Pulse Ox 96.6 F L 72 20 138/60 98 04/25/17 07:57 04/25/17 08:43 04/25/17 07:57 04/25/17 08:43 04/25/17 07:57 - Medications Medications: Current Medications Aspirin (Aspirin Chewable) 81 mg PO DAILY [facility] Last Admin: 04/25/17 08:46 Dose: 81 mg Atorvastatin Calcium (Lipitor) 80 mg PO HS [facility] Stop: 05/01/17 22:01 Last Admin: 04/24/17 21:00 Dose: 80 mg Enoxaparin Sodium (Lovenox) 40 mg SC DAILY [facility] PRN Reason: Protocol Last Admin: 04/25/17 08:43 Dose: 40 mg Insulin Human Lispro (Humalog) 0 units SC 0630 [facility] PRN Reason: Protocol Last Admin: 04/25/17 06:37 Dose: Not Given Levetiracetam (Keppra) 1,000 mg PO Q12 [facility] Last Admin: 04/25/17 08:45 Dose: 1,000 mg Losartan Potassium (Cozaar) 50 mg PO DAILY [facility] Last Admin: 04/25/17 08:43 Dose: 50 mg Metformin HCl (Glucophage) 500 mg PO BIDWM [facility] Last Admin: 04/25/17 08:45 Dose: 500 mg Pantoprazole Sodium (Protonix Ec Tab) 40 mg PO DAILY [facility] Last Admin: 04/25/17 08:45 Dose: 40 mg Pilocarpine HCl (Isopto Carpine 2% Opht Soln) 1 drop OU TID [facility] Last Admin: 04/25/17 08:46 Dose: 1 drop Timolol Maleate (Timoptic 0.5% Ophth Soln) 1 drop OU DAILY [facility] Last Admin: 04/25/17 08:46 Dose: 1 drop - Labs Labs: 04/23/17 06:30 04/23/17 06:30 - Head Exam Head Exam: ATRAUMATIC, NORMAL INSPECTION, NORMOCEPHALIC - Eye Exam Eye Exam: EOMI, Normal appearance, PERRL Pupil Exam: NORMAL ACCOMODATION, PERRL - ENT Exam ENT Exam: Mucous Membranes Moist, Normal Exam - Neck Exam Neck Exam: Full ROM, Normal Inspection. absent: Lymphadenopathy - Respiratory Exam Respiratory Exam: Clear to Ausculation Bilateral, NORMAL BREATHING PATTERN - Cardiovascular Exam Cardiovascular Exam: REGULAR RHYTHM, +S1, +S2. absent: Murmur - GI/Abdominal Exam GI & Abdominal Exam: Soft, Normal Bowel Sounds. absent: Tenderness - Rectal Exam Rectal Exam: NORMAL INSPECTION - Exam External exam: NORMAL EXTERNAL EXAM Speculum exam: NORMAL SPECULUM EXAM Bimanual exam: NORMAL BIMANUAL EXAM - Extremities Exam Extremities Exam: Full ROM, Normal Capillary Refill, Normal Inspection. absent : Joint Swelling, Pedal Edema - Back Exam Back Exam: NORMAL INSPECTION - Neurological Exam Neurological Exam: Alert, Awake, CN II-XII Intact, Normal Gait, Oriented x3 Neuro motor strength exam: Left Upper Extremity: 2/1, Left Lower Extremity: 2/1 - Psychiatric Exam Psychiatric exam: Normal Affect, Normal Mood - Skin Skin Exam: Dry, Intact, Normal Color Assessment and Plan (1) DM2 (diabetes mellitus, type 2) Status: Acute (2) DVT prophylaxis Status: Acute (3) HLD (hyperlipidemia) Status: Acute (4) HTN (hypertension) Status: Acute (5) Status post CVA Assessment & Plan: plan for physical, occupational, rec and speech therapy Status: Acute
--- NOTE | 2017-04-25 13:28 | CP.PCM.PN ---
Subjective - Date & Time of Evaluation Date of Evaluation: 04/25/17 Time of Evaluation: 08:00 - Subjective Subjective: no acute complaints at present Objective - Vital Signs/Intake and Output Vital Signs (last 24 hours): Temp Pulse Resp BP Pulse Ox 96.6 F L 72 20 138/60 98 04/25/17 07:57 04/25/17 08:43 04/25/17 07:57 04/25/17 08:43 04/25/17 07:57 - Medications Medications: Current Medications Aspirin (Aspirin Chewable) 81 mg PO DAILY [facility] Last Admin: 04/25/17 08:46 Dose: 81 mg Atorvastatin Calcium (Lipitor) 80 mg PO HS [facility] Stop: 05/01/17 22:01 Last Admin: 04/24/17 21:00 Dose: 80 mg Enoxaparin Sodium (Lovenox) 40 mg SC DAILY [facility] PRN Reason: Protocol Last Admin: 04/25/17 08:43 Dose: 40 mg Insulin Human Lispro (Humalog) 0 units SC 0630 [facility] PRN Reason: Protocol Last Admin: 04/25/17 06:37 Dose: Not Given Levetiracetam (Keppra) 1,000 mg PO Q12 [facility] Last Admin: 04/25/17 08:45 Dose: 1,000 mg Losartan Potassium (Cozaar) 50 mg PO DAILY [facility] Last Admin: 04/25/17 08:43 Dose: 50 mg Metformin HCl (Glucophage) 500 mg PO BIDWM [facility] Last Admin: 04/25/17 08:45 Dose: 500 mg Pantoprazole Sodium (Protonix Ec Tab) 40 mg PO DAILY [facility] Last Admin: 04/25/17 08:45 Dose: 40 mg Pilocarpine HCl (Isopto Carpine 2% Opht Soln) 1 drop OU TID [facility] Last Admin: 04/25/17 08:46 Dose: 1 drop Timolol Maleate (Timoptic 0.5% Ophth Soln) 1 drop OU DAILY [facility] Last Admin: 04/25/17 08:46 Dose: 1 drop - Labs Labs: 04/23/17 06:30 04/23/17 06:30 - Head Exam Head Exam: ATRAUMATIC, NORMAL INSPECTION, NORMOCEPHALIC - Eye Exam Eye Exam: EOMI, Normal appearance, PERRL Pupil Exam: NORMAL ACCOMODATION, PERRL - ENT Exam ENT Exam: Mucous Membranes Moist, Normal Exam - Neck Exam Neck Exam: Full ROM, Normal Inspection. absent: Lymphadenopathy - Respiratory Exam Respiratory Exam: Clear to Ausculation Bilateral, NORMAL BREATHING PATTERN - Cardiovascular Exam Cardiovascular Exam: REGULAR RHYTHM, +S1, +S2. absent: Murmur - GI/Abdominal Exam GI & Abdominal Exam: Soft, Normal Bowel Sounds. absent: Tenderness - Rectal Exam Rectal Exam: NORMAL INSPECTION - Exam External exam: NORMAL EXTERNAL EXAM - Extremities Exam Extremities Exam: Full ROM, Normal Capillary Refill, Normal Inspection. absent : Joint Swelling, Pedal Edema - Back Exam Back Exam: NORMAL INSPECTION - Neurological Exam Neurological Exam: Alert, Awake, CN II-XII Intact, Normal Gait, Oriented x3 Neuro motor strength exam: Left Upper Extremity: 2/1, Right Upper Extremity: 3, Left Lower Extremity: 2/1, Right Lower Extremity: 3 - Psychiatric Exam Psychiatric exam: Normal Affect, Normal Mood - Skin Skin Exam: Dry, Intact Assessment and Plan (1) DM2 (diabetes mellitus, type 2) Status: Acute (2) DVT prophylaxis Status: Acute (3) HLD (hyperlipidemia) Status: Acute (4) HTN (hypertension) Status: Acute (5) Status post CVA Assessment & Plan: plan for pt, ot rec therapy Status: Acute
[2017-04-26 06:28] LABS: HEMOGLOBIN 13.1 g/dL (12.0-16.0); MEAN CELL VOLUME 81.3 fl (81.0-99.0); MEAN CORPUSCULAR HEMOGLOBIN 26.2 pg (27.0-31.0); MEAN CORPUSCULAR HGB CONC 32.2 g/dL (33.0-37.0); WHITE BLOOD COUNT 9.1 K/uL (4.8-10.8)
[2017-04-26 07:01] LABS: BLOOD UREA NITROGEN 14 mg/dl (7-17); CALCIUM 9.2 mg/dL (8.4-10.2); GFR AFRICAN-AMERICAN > 60; GFR NON-AFRICAN AMERICAN > 60
[2017-04-26] MEDS: Insulin Lispro (humaLOG) 100 Units/ml Inj SC SCH (07:41)
[2017-04-26] MEDS: Pilocarpine 2% Opht Soln OU SCH ×3 (08:18→17:21)
[2017-04-26] MEDS: Pantoprazole 40 mg EC Tab PO SCH (08:18)
[2017-04-26] MEDS: Enoxaparin 40 mg Syringe SC SCH (08:20)
--- NOTE | 2017-04-26 10:41 | CP.PCM.PN ---
Subjective - Date & Time of Evaluation Date of Evaluation: 04/26/17 Time of Evaluation: 10:25 - Subjective Subjective: Patient was seen and examined. She is able to say 1-2 words at a time now. She denies any complaints today and states that she feels well. HD stable. Objective - Vital Signs/Intake and Output Vital Signs (last 24 hours): Temp Pulse Resp BP Pulse Ox 97.9 F 56 L 20 152/87 H 98 04/26/17 07:53 04/26/17 08:18 04/26/17 07:53 04/26/17 08:18 04/26/17 07:53 - Medications Medications: Current Medications Aspirin (Aspirin Chewable) 81 mg PO DAILY [facility] Last Admin: 04/26/17 08:22 Dose: 81 mg Atorvastatin Calcium (Lipitor) 80 mg PO HS [facility] Stop: 05/01/17 22:01 Last Admin: 04/25/17 21:42 Dose: 80 mg Enoxaparin Sodium (Lovenox) 40 mg SC DAILY [facility] PRN Reason: Protocol Last Admin: 04/26/17 08:20 Dose: 40 mg Insulin Human Lispro (Humalog) 0 units SC 0630 [facility] PRN Reason: Protocol Last Admin: 04/26/17 07:41 Dose: 2 units Levetiracetam (Keppra) 1,000 mg PO Q12 [facility] Last Admin: 04/26/17 08:20 Dose: 1,000 mg Losartan Potassium (Cozaar) 50 mg PO DAILY [facility] Last Admin: 04/26/17 08:18 Dose: 50 mg Metformin HCl (Glucophage) 500 mg PO BIDWM [facility] Last Admin: 04/26/17 08:18 Dose: 500 mg Pantoprazole Sodium (Protonix Ec Tab) 40 mg PO DAILY [facility] Last Admin: 04/26/17 08:18 Dose: 40 mg Pilocarpine HCl (Isopto Carpine 2% Opht Soln) 1 drop OU TID [facility] Last Admin: 04/26/17 08:18 Dose: 1 drop Timolol Maleate (Timoptic 0.5% Ophth Soln) 1 drop OU DAILY [facility] Last Admin: 04/26/17 08:18 Dose: 1 drop - Labs Labs: 04/26/17 05:30 04/26/17 05:30 - Additional Findings Additional findings: Physical exam: Constitutional- cooperative, awake, alert Head- NCAT, PERRL Eye- PERRL, EOMI ENT- normal exam, MMM. Neck- normal inspection, supple, no JVD Respiratory- CTAB, no wheezes rales rhonchi Cardiovascular- RRR, +S1, +S2 no MRG GI/Abdominal- normal bowel sounds, soft, no mass, no hsm Skin- warm, dry Extremities Exam- normal capillary refill, normal inspection Neurological Exam- alert, awake, oriented. 1/5 muscle strength to right upper and lower extremities. 5/5 muscle strength to left upper and lower extremities. Aphasia improving and now able to speak 1-2 words at a time. Psych- normal mood, normal affect Assessment and Plan - Assessment and Plan (Free Text) Plan: This is a 61 y/o female with MHx significant for HTN, HLD, DM2, and glaucoma who was brought into the ED at [facility] on 04/04/2017 by EMS for R sided weakness (UE /LE), inability to walk, and aphasia. Patient did not receive TPA as duration of symptoms was unclear/outside window for administration. Patient was admitted to [facility]. Had workup including brain MRI showing acute left MCA infarct. The patient was subsequently admitted to [facility] for acute rehab. Currently indicates weakness in R side of body is persistent. Patient is aphasic, but can understand speech and commands and can answer yes/no questions with nodding/ shaking of head. 1) CVA - Aphasic but slowing improving, now speaking 1-2 words at a time. - Continue PT/OT/ST - Dr. Corado on consultation from neurology - Continue Keppra - Continue ASA - Statin 2) Type 2 DM - Continue Metformin - Continue regular insulin sliding scale with accucheks AC+HS - Moderate carbohydrate diet 3) Hypertension - Continue home losartan 4) Adjustment order with depressed mood- improved - Dr. Masterson, psychiatry consultation - recommends observing the patient for now without antidepressant 4) DVT prophylaxis - Lovenox
--- NOTE | 2017-04-26 12:10 | PSY.TMCNF ---
Nursing - Vital Signs Vital Signs (Last 8 hours): Vital Signs 04/26/17 04/26/17 04/26/17 07:53 08:18 09:00 Temperature 97.9 F 97.9 F Pulse Rate 56 L 56 L 56 L Respiratory 20 20 Rate Blood Pressure 152/87 H 152/87 H 152/87 H O2 Sat by Pulse 98 Oximetry Pain: 0 - Precautions: Precautions: Fall Prevention - Medications/Other Issues Comment: Speech, Safety - Consults Comment: Dr. Moralez, Dr. Corado, Dr. Watson, Dr. Masterson - Toileting Toileting: Minimal Assistance - Bladder Management Bladder Pattern: Normal Voiding Method: Toilet Bladder Management: Minimal Assistance - Bowel Management Bowel Pattern: Normal Bowel Management: Minimal Assistance - Transfers Transfers: Minimal Assistance - ADL's ADL's: Minimal Assistance - Pain Management Comments: Denies pain - Patient/Family Teaching Comments: Post CVA care. Safety - Goals/Time Frame Comments: Per multidiscplinary team. - Provider Provider: Maricel Arango Physical Therapy - Bed Mobility Bed Mobility: Supervision, Verbal Cues, Contact Guard - Transfers Wheelchair to Mat: Contact Guard Sit to Stand: Supervision, Verbal Cues, Contact Guard - Ambulation Level of Assistance: Verbal Cues, Contact Guard, Minimal Assistance Distance (ft.): 60 Assistive Devices: Narrow base quad cane Orthoses: n/A Comment: -60 feet with NBQC with CG and incidental min A for weight shifting. - step to pattern. -x 3 trials with rest breaks as needed. -no longer using R MAFO with increased and constant emphasis on maintaining RLE flexion during stance to reduce hyperextension; extensive cueing and education to constantly maintain flexion and improve neuro motor control/attention to knee control - Stair Negotiation Stairs: Level of Assistance: Contact Guard, Minimal Assistance Stairs: Assistive Devices: Left Handrail Comment: 1 flight 8 inch steps, step to pattern with min A/CG - Standing Balance Static Stand: Supervision Dynamic Stand: Contact Guard Assist, Minimal Assistance, Moderate Assistance Comment: pending demands of activity - Pain Comment: pt denies pain - Insight/Carryover Insight/Carryover: Fair - Patient/Family Education Comment: safety, therapy schedule, therapy goals, mobility, POC, stroke recovery , neuromotor control, WC mobility, use of DME, use of call basilio - Assessment/Plan Assessment: Patient continues to require minimal assistance for ADLs and requires CGA for functional transfers (w/c, bed, toileting), toileting requires mod A secondary to decreased standing balance/tolerance, sitting balance/tolerance, endurance, safety awareness, RUE inattention, strength and ROM. Patient will continue to benefit from skilled OT services 5-6x/week to address above deficits to increase independence for discharge. OT recommends continued skilled therapy in the sub-acute setting to continue addressing skilled needs prior to community discharge. - Goals Timeframe: 7 days Goals: Modified independence with functional transfers and ADLs - Provider License Number: [id number] Occupational Therapy - Arousal/Attention/Orientation Patient Orientation: Person, Place, Time, Appropriate to Age, Appropriate to Situation - ADL/IADL Self Feeding: Supervision, Verbal Cues, Set-up Help Grooming: Supervision, Verbal Cues, Set-up Help Bathing-Upper Extremity: Minimal Assistance Bathing-Lower Extremity: Minimal Assistance Dressing-Upper Extremity: Minimal Assistance Dressing-Lower Extremity: Minimal Assistance Comment: pt benefits from lb AE and primo dressing technique - Sitting Balance Static Sitting: Independent without upper extremity support Dynamic Sitting: Requires supervision - Transfers Wheelchair to Bed Transfers: Supervision, Contact Guard Toilet Transfers: Supervision, Contact Guard Tub Transfers: Contact Guard - Wheelchair Management Level of Assistance: Supervision, Verbal Cues Distance (ft.): 150 - Upper Extremity Status Right Upper Extremity Comment: PROM WFL, AROM limited to elbow/shoulder/scapular , no AROM in forearm, wrist and hands. -slight AROM elbow flexion/extension, and AROM shoulder flexion/extension 1/5 strength. elbow flexion/extension 1/5 strength. shoudler flexion/extension 1/5 Left Upper Extremity Comment: WFL - Pain Comment: pt denies pain - Insight/Carryover Insight/Carryover: Fair - Patient/Family Education Comment: safety, therapy schedule, therapy goals, mobility, POC, stroke recovery , neuromotor control, WC mobility, use of DME, use of call basilio - Assessment/Plan Assessment: Patient continues to require minimal assistance for ADLs and requires CGA for functional transfers (w/c, bed, toileting), toileting requires mod A secondary to decreased standing balance/tolerance, sitting balance/tolerance, endurance, safety awareness, RUE inattention, strength and ROM. Patient will continue to benefit from skilled OT services 5-6x/week to address above deficits to increase independence for discharge. OT recommends continued skilled therapy in the sub-acute setting to continue addressing skilled needs prior to community discharge. - Goals Timeframe: 7 days Goals: Modified independence with functional transfers and ADLs - Provider Therapist: ANNE Man Speech Therapy - Consult Information Patient on Program: Yes Medical Diagnosis: CVA Treatment Diagnosis: -severe apraxia of speech. -moderate-severe expressive aphasia. -mild receptive aphasia - Assessment Expressive Language Impairment: Severe Comment: moderate-severe Receptive Language Impairment: Mild Speech/Articulation Impairment: Severe Comment: severe apraxia of speech - Plan Assessment: Patient continues to require minimal assistance for ADLs and requires CGA for functional transfers (w/c, bed, toileting), toileting requires mod A secondary to decreased standing balance/tolerance, sitting balance/tolerance, endurance, safety awareness, RUE inattention, strength and ROM. Patient will continue to benefit from skilled OT services 5-6x/week to address above deficits to increase independence for discharge. OT recommends continued skilled therapy in the sub-acute setting to continue addressing skilled needs prior to community discharge. - Provider Therapist: Leslie Villanueva License Number: [id number] Recreational Therapy - Participation Participation: Participates in Individual and/or Group Sessions - Attendance Attendance: 3-5 times per week - Activities Leisure Activities: Cards and Games - Socialization Level of Socialization: Requires 1:1 guidance to respond, Minimal initiation of interaction to request basic needs - Diversional Time Diversional Time: cards, games - Assessment Assessment/Plan: Patient continues to require minimal assistance for ADLs and requires CGA for functional transfers (w/c, bed, toileting), toileting requires mod A secondary to decreased standing balance/tolerance, sitting balance/tolerance, endurance, safety awareness, RUE inattention, strength and ROM. Patient will continue to benefit from skilled OT services 5-6x/week to address above deficits to increase independence for discharge. OT recommends continued skilled therapy in the sub-acute setting to continue addressing skilled needs prior to community discharge. - Provider Therapist: Elizabeth Medina, EXTERMINATION SUPERVISOR #[id number] Nutrition - Current Diet Current Diet/ Supplement/ Feedings: Moderate consistent CHO 2 gram Na low fat/ low cholesterol - Appetite Percent Meal Consumed: 75-100% - Comments Comments: Post CVA care. Safety - Assessment/Goals/Time Frame Assessment/Goals/Time Frame: Speech, Safety - Provider Provider: Alanna Petty RD Case Management - Psychosocial Assessment Support Systems: Navneet Hewitt (sibling)- [phone]. Francisco J Hewitt ( sibling)- [phone] Psychological Interventions/Needs: Patient is alert and oriented with severe expressive aphasia and apraxia of speech Discharge Concerns: Patient currently requiring min-mod A for functional mobility, however, continues to demonstrate impairments in speech/language Patient/Family Meeting: CM met with patient and rehab team Intervention/Goal/Outcome:: 1. Goal: DENISSE as patient continues to make great progress in therapy and will continue to benefit from inpatient therapy- list to be provided to patient and family. 2. continued emotional support. 3. caregiver training arranged with brother Francisco J on 04/20/2017 at 9am. 4. continued stay auth, LAD: 04/20. 5. tentative discharge date: 05/01/2017 - Discharge Plan Discharge Plan: Subacute care - Provider Provider: MIGUEL Fairchild, HVAC SERVICES PROFESSIONAL License Number: [id number] Rehabilitation Plan - Treatment Plan Treatment Plan: Physical Therapy, Occupational Therapy, Speech, Dietary - Recommendation Recommendation: Physical Therapy, Occupational Therapy, Speech, Dietary - Discharge Plan Discharge to: Subacute (12)
--- NOTE | 2017-04-26 16:36 | CP.PCM.PN ---
Subjective - Date & Time of Evaluation Date of Evaluation: 04/26/17 Time of Evaluation: 16:35 - Subjective Subjective: Patient seen in room on coverage for Dr Moralez denies sob/cp doing well in therapies dense right UE but good right LE strength continue current care Objective - Vital Signs/Intake and Output Vital Signs (last 24 hours): Temp Pulse Resp BP Pulse Ox 97.9 F 56 L 20 152/87 H 98 04/26/17 09:00 04/26/17 09:00 04/26/17 09:00 04/26/17 09:00 04/26/17 07:53 - Medications Medications: Current Medications Aspirin (Aspirin Chewable) 81 mg PO DAILY [facility] Last Admin: 04/26/17 08:22 Dose: 81 mg Atorvastatin Calcium (Lipitor) 80 mg PO HS [facility] Stop: 05/01/17 22:01 Last Admin: 04/25/17 21:42 Dose: 80 mg Enoxaparin Sodium (Lovenox) 40 mg SC DAILY [facility] PRN Reason: Protocol Last Admin: 04/26/17 08:20 Dose: 40 mg Insulin Human Lispro (Humalog) 0 units SC 0630 [facility] PRN Reason: Protocol Last Admin: 04/26/17 07:41 Dose: 2 units Levetiracetam (Keppra) 1,000 mg PO Q12 [facility] Last Admin: 04/26/17 08:20 Dose: 1,000 mg Losartan Potassium (Cozaar) 50 mg PO DAILY [facility] Last Admin: 04/26/17 08:18 Dose: 50 mg Metformin HCl (Glucophage) 500 mg PO BIDWM [facility] Last Admin: 04/26/17 08:18 Dose: 500 mg Pantoprazole Sodium (Protonix Ec Tab) 40 mg PO DAILY [facility] Last Admin: 04/26/17 08:18 Dose: 40 mg Pilocarpine HCl (Isopto Carpine 2% Opht Soln) 1 drop OU TID [facility] Last Admin: 04/26/17 12:35 Dose: 1 drop Timolol Maleate (Timoptic 0.5% Ophth Soln) 1 drop OU DAILY [facility] Last Admin: 04/26/17 08:18 Dose: 1 drop - Labs Labs: 04/26/17 05:30 04/26/17 05:30
[2017-04-27] MEDS: Insulin Lispro (humaLOG) 100 Units/ml Inj SC SCH (06:23)
[2017-04-27] MEDS: Pilocarpine 2% Opht Soln OU SCH ×3 (08:42→16:46)
[2017-04-27] MEDS: Enoxaparin 40 mg Syringe SC SCH (08:43)
[2017-04-27] MEDS: Pantoprazole 40 mg EC Tab PO SCH (08:43)
[2017-04-28] MEDS: Insulin Lispro (humaLOG) 100 Units/ml Inj SC SCH (06:02)
[2017-04-28] MEDS: Pantoprazole 40 mg EC Tab PO SCH (08:59)
[2017-04-28] MEDS: Pilocarpine 2% Opht Soln OU SCH ×3 (09:00→17:19)
[2017-04-28] MEDS: Enoxaparin 40 mg Syringe SC SCH (09:01)
--- NOTE | 2017-04-28 17:40 | CP.PCM.PN ---
Subjective - Date & Time of Evaluation Date of Evaluation: 04/28/17 Time of Evaluation: 17:39 - Subjective Subjective: Patient seen in the room finished eating doing well ambulating 150' with NBQC continue current care Objective - Vital Signs/Intake and Output Vital Signs (last 24 hours): Temp Pulse Resp BP Pulse Ox 97.9 F 60 19 137/80 99 04/28/17 08:31 04/28/17 08:59 04/28/17 08:31 04/28/17 08:59 04/28/17 08:31 - Medications Medications: Current Medications Aspirin (Aspirin Chewable) 81 mg PO DAILY [facility] Last Admin: 04/28/17 09:05 Dose: 81 mg Atorvastatin Calcium (Lipitor) 80 mg PO HS [facility] Stop: 05/01/17 22:01 Last Admin: 04/27/17 21:14 Dose: 80 mg Enoxaparin Sodium (Lovenox) 40 mg SC DAILY [facility] PRN Reason: Protocol Last Admin: 04/28/17 09:01 Dose: 40 mg Insulin Human Lispro (Humalog) 0 units SC 0630 [facility] PRN Reason: Protocol Last Admin: 04/28/17 06:02 Dose: Not Given Levetiracetam (Keppra) 1,000 mg PO Q12 [facility] Last Admin: 04/28/17 09:01 Dose: 1,000 mg Losartan Potassium (Cozaar) 50 mg PO DAILY [facility] Last Admin: 04/28/17 08:59 Dose: 50 mg Metformin HCl (Glucophage) 500 mg PO BIDWM [facility] Last Admin: 04/28/17 17:19 Dose: 500 mg Pantoprazole Sodium (Protonix Ec Tab) 40 mg PO DAILY [facility] Last Admin: 04/28/17 08:59 Dose: 40 mg Pilocarpine HCl (Isopto Carpine 2% Opht Soln) 1 drop OU TID [facility] Last Admin: 04/28/17 17:19 Dose: 1 drop Timolol Maleate (Timoptic 0.5% Ophth Soln) 1 drop OU DAILY [facility] Last Admin: 04/28/17 09:05 Dose: 1 drop - Labs Labs: 04/26/17 05:30 04/26/17 05:30
--- NOTE | 2017-04-28 18:13 | CP.PCM.PN ---
Subjective - Date & Time of Evaluation Date of Evaluation: 04/28/17 Time of Evaluation: 10:30 - Subjective Subjective: Patient was seen and examined. Continues to do well. Seen during speech therapy. In good spirits and is smiling. States that she feels well. HD stable, NAD. Objective - Vital Signs/Intake and Output Vital Signs (last 24 hours): Temp Pulse Resp BP Pulse Ox 97.9 F 60 19 137/80 99 04/28/17 08:31 04/28/17 08:59 04/28/17 08:31 04/28/17 08:59 04/28/17 08:31 - Medications Medications: Current Medications Aspirin (Aspirin Chewable) 81 mg PO DAILY [facility] Last Admin: 04/28/17 09:05 Dose: 81 mg Atorvastatin Calcium (Lipitor) 80 mg PO HS [facility] Stop: 05/01/17 22:01 Last Admin: 04/27/17 21:14 Dose: 80 mg Enoxaparin Sodium (Lovenox) 40 mg SC DAILY [facility] PRN Reason: Protocol Last Admin: 04/28/17 09:01 Dose: 40 mg Insulin Human Lispro (Humalog) 0 units SC 0630 [facility] PRN Reason: Protocol Last Admin: 04/28/17 06:02 Dose: Not Given Levetiracetam (Keppra) 1,000 mg PO Q12 [facility] Last Admin: 04/28/17 09:01 Dose: 1,000 mg Losartan Potassium (Cozaar) 50 mg PO DAILY [facility] Last Admin: 04/28/17 08:59 Dose: 50 mg Metformin HCl (Glucophage) 500 mg PO BIDWM [facility] Last Admin: 04/28/17 17:19 Dose: 500 mg Pantoprazole Sodium (Protonix Ec Tab) 40 mg PO DAILY [facility] Last Admin: 04/28/17 08:59 Dose: 40 mg Pilocarpine HCl (Isopto Carpine 2% Opht Soln) 1 drop OU TID [facility] Last Admin: 04/28/17 17:19 Dose: 1 drop Timolol Maleate (Timoptic 0.5% Ophth Soln) 1 drop OU DAILY [facility] Last Admin: 04/28/17 09:05 Dose: 1 drop - Labs Labs: 04/26/17 05:30 04/26/17 05:30 - Additional Findings Additional findings: Physical exam: Constitutional- cooperative, awake, alert Head- NCAT, PERRL Eye- PERRL, EOMI ENT- normal exam, MMM. Neck- normal inspection, supple, no JVD Respiratory- CTAB, no wheezes rales rhonchi Cardiovascular- RRR, +S1, +S2 no MRG GI/Abdominal- normal bowel sounds, soft, no mass, no hsm Skin- warm, dry Extremities Exam- normal capillary refill, normal inspection Neurological Exam- alert, awake, oriented. 1/5 muscle strength to right upper and lower extremities. 5/5 muscle strength to left upper and lower extremities. Aphasia improving and now able to speak 1-2 words at a time. Psych- normal mood, normal affect Assessment and Plan - Assessment and Plan (Free Text) Plan: This is a 61 y/o female with MHx significant for HTN, HLD, DM2, and glaucoma who was brought into the ED at [facility] on 04/04/2017 by EMS for R sided weakness (UE /LE), inability to walk, and aphasia. Patient did not receive TPA as duration of symptoms was unclear/outside window for administration. Patient was admitted to [facility]. Had workup including brain MRI showing acute left MCA infarct. The patient was subsequently admitted to [facility] for acute rehab. Currently indicates weakness in R side of body is persistent. Patient is aphasic, but can understand speech and commands and can answer yes/no questions with nodding/ shaking of head. 1) CVA - Aphasic but slowing improving, now speaking 1-2 words at a time. - Continue PT/OT/ST - Dr. Corado on consultation from neurology - Continue Keppra - Continue ASA - Statin 2) Type 2 DM - Continue Metformin - Continue regular insulin sliding scale with accucheks AC+HS - Moderate carbohydrate diet 3) Hypertension - Continue home losartan 4) Adjustment order with depressed mood- improved - Dr. Masterson, psychiatry consultation - recommends observing the patient for now without antidepressant 4) DVT prophylaxis - Lovenox 40 mg sc daily
[2017-04-28 20:18] VITALS: RESP 20
[2017-04-29] MEDS: Insulin Lispro (humaLOG) 100 Units/ml Inj SC SCH (05:47)
[2017-04-29 07:04] LABS: HEMOGLOBIN 13.2 g/dL (12.0-16.0); MEAN CORPUSCULAR HEMOGLOBIN 26.4 pg (27.0-31.0); RED CELL DISTRIBUTION WIDTH 13.7 % (11.5-14.5)
[2017-04-29 07:18] LABS: BLOOD UREA NITROGEN 15 mg/dl (7-17); CALCIUM 9.2 mg/dL (8.4-10.2); GFR AFRICAN-AMERICAN > 60; GFR NON-AFRICAN AMERICAN > 60
[2017-04-29] MEDS: Enoxaparin 40 mg Syringe SC SCH (08:34)
[2017-04-29] MEDS: Pilocarpine 2% Opht Soln OU SCH ×3 (08:35→17:17)
[2017-04-29] MEDS: Pantoprazole 40 mg EC Tab PO SCH (08:36)
[2017-04-30] MEDS: Insulin Lispro (humaLOG) 100 Units/ml Inj SC SCH (06:33)
[2017-04-30] MEDS: Pilocarpine 2% Opht Soln OU SCH ×3 (08:47→16:42)
[2017-04-30] MEDS: Enoxaparin 40 mg Syringe SC SCH (08:49)
[2017-04-30] MEDS: Pantoprazole 40 mg EC Tab PO SCH (08:50)
[2017-05-01] MEDS: Insulin Lispro (humaLOG) 100 Units/ml Inj SC SCH (05:46)
[2017-05-01 08:06] VITALS: BP 154/70; PULSE 57; TEMP 97; O2SAT 96
[2017-05-01] MEDS: Enoxaparin 40 mg Syringe SC SCH (08:49)
[2017-05-01] MEDS: Pilocarpine 2% Opht Soln OU SCH ×2 (08:49→13:00)
[2017-05-01] MEDS: Pantoprazole 40 mg EC Tab PO SCH (08:51)
--- NOTE | 2017-05-01 12:36 | CP.PCM.DIS ---
Provider - Provider Date of Admission: 04/07/17 21:49 Attending physician: Nata Schofield MD Time Spent in preparation of Discharge (in minutes): 30 Diagnosis - Discharge Diagnosis (1) DM2 (diabetes mellitus, type 2) Status: Acute (2) DVT prophylaxis Status: Acute (3) HLD (hyperlipidemia) Status: Acute (4) HTN (hypertension) Status: Acute (5) Status post CVA Status: Acute Hospital Course - Lab Results Lab Results: Most Recent Lab Values WBC 10.0 K/uL (4.8-10.8) 04/29/17 05:20 RBC 5.00 Mil/uL (3.80-5.20) 04/29/17 05:20 Hgb 13.2 g/dL (12.0-16.0) 04/29/17 05:20 Hct 40.0 % (34.0-47.0) 04/29/17 05:20 MCV 80.0 fl (81.0-99.0) L 04/29/17 05:20 MCH 26.4 pg (27.0-31.0) L 04/29/17 05:20 MCHC 33.0 g/dL (33.0-37.0) 04/29/17 05:20 RDW 13.7 % (11.5-14.5) 04/29/17 05:20 Plt Count 213 K/uL (130-400) 04/29/17 05:20 Sodium 145 mmol/l (132-148) 04/29/17 05:20 Potassium 3.8 MMOL/L (3.6-5.0) 04/29/17 05:20 Chloride 102 mmol/L (98-107) 04/29/17 05:20 Carbon Dioxide 30 mmol/L (22-30) 04/29/17 05:20 Anion Gap 17 (10-20) 04/29/17 05:20 BUN 15 mg/dl (7-17) 04/29/17 05:20 Creatinine 0.9 mg/dl (0.7-1.2) 04/29/17 05:20 Est GFR ( Amer) > 60 04/29/17 05:20 Est GFR (Non-Af Amer) > 60 04/29/17 05:20 POC Glucose (mg/dL) 115 mg/dL (65-110) H 05/01/17 05:38 Random Glucose 137 mg/dL (65-105) H 04/29/17 05:20 Hemoglobin A1c 8.7 % (4.2-6.5) H 04/10/17 16:39 Calcium 9.2 mg/dL (8.4-10.2) 04/29/17 05:20 Homocysteine 10.1 umol/L ( <10.4) 04/10/17 16:39 - Hospital Course Hospital Course: 61 y/o female with MHx significant for HTN, HLD, DM2, and glaucoma who was brought into the ED at [facility] on 04/04/2017 by EMS for R sided weakness (UE/LE), inability to walk, and aphasia. Patient did not receive TPA as duration of symptoms was unclear/outside window for administration. Patient was admitted to [facility]. Had workup including brain MRI showing acute left MCA infarct. The patient was subsequently admitted to [facility] for acute rehab. Currently indicates weakness in R side of body is persistent. Patient is aphasic, but can understand speech and commands and can answer yes/no questions with nodding/ shaking of head. Patient to be discharged in stable condition to [facility]. Follow up PCP in one week, 1) CVA - Aphasic but slowing improving, now speaking 1-2 words at a time. - Continue PT/OT/ST - Dr. Corado on consultation from neurology - Continue Keppra - Continue ASA - Statin to 40 mg daily 2) Type 2 DM - Continue Metformin - Continue regular insulin sliding scale with accucheks AC+HS - Moderate carbohydrate diet 3) Hypertension - Continue home losartan 4) Adjustment order with depressed mood- improved - Dr. Masterson, psychiatry consultation - recommends observing the patient for now without antidepressant 4) DVT prophylaxis - Lovenox 40 mg sc daily Discharge Exam - Head Exam Head Exam: ATRAUMATIC, NORMAL INSPECTION, NORMOCEPHALIC - Eye Exam Eye Exam: EOMI, Normal appearance - ENT Exam ENT Exam: Mucous Membranes Moist, Normal Oropharynx - Respiratory Exam Respiratory Exam: Clear to PA & Lateral, NORMAL BREATHING PATTERN - Cardiovascular Exam Cardiovascular Exam: RRR, +S1, +S2 - GI/Abdominal Exam GI & Abdominal Exam: Normal Bowel Sounds, Soft, Unremarkable - Extremities Exam Extremities exam: normal capillary refill, pedal pulses present - Back Exam Back exam: absent: CVA tenderness (L), CVA tenderness (R) - Neurological Exam Neurological exam: Alert, Reflexes Normal - Skin Skin Exam: Dry, Warm Discharge Plan - Follow Up Plan Condition: GOOD Disposition: TRANSF TO SNF
--- NOTE | 2017-05-01 21:05 | CP.PCM.PN ---
Subjective - Date & Time of Evaluation Date of Evaluation: 04/29/17 Time of Evaluation: 12:30 - Subjective Subjective: no acute complaints Objective - Vital Signs/Intake and Output Vital Signs (last 24 hours): Temp Pulse Resp BP Pulse Ox 97.0 F L 57 L 20 154/70 H 96 05/01/17 08:06 05/01/17 08:49 05/01/17 08:06 05/01/17 08:49 05/01/17 08:06 - Labs Labs: 04/29/17 05:20 04/29/17 05:20 - Head Exam Head Exam: ATRAUMATIC, NORMAL INSPECTION, NORMOCEPHALIC - Eye Exam Eye Exam: EOMI, Normal appearance, PERRL - ENT Exam ENT Exam: Mucous Membranes Moist, Normal Exam - Neck Exam Neck Exam: Full ROM, Normal Inspection. absent: Lymphadenopathy - Respiratory Exam Respiratory Exam: Clear to Ausculation Bilateral, NORMAL BREATHING PATTERN - Cardiovascular Exam Cardiovascular Exam: REGULAR RHYTHM, +S1, +S2. absent: Murmur - GI/Abdominal Exam GI & Abdominal Exam: Soft, Normal Bowel Sounds. absent: Tenderness - Exam External exam: NORMAL EXTERNAL EXAM - Extremities Exam Extremities Exam: Full ROM, Normal Capillary Refill, Normal Inspection. absent : Joint Swelling, Pedal Edema - Back Exam Back Exam: NORMAL INSPECTION - Neurological Exam Neurological Exam: Alert Neuro motor strength exam: Left Upper Extremity: 3, Right Upper Extremity: 3, Left Lower Extremity: 3, Right Lower Extremity: 3 - Psychiatric Exam Psychiatric exam: Normal Affect Assessment and Plan (1) DM2 (diabetes mellitus, type 2) Status: Acute (2) DVT prophylaxis Status: Acute (3) HLD (hyperlipidemia) Status: Acute (4) HTN (hypertension) Status: Acute (5) Status post CVA Assessment & Plan: plan for Dc status post Pt, Ot rec and speech therapy additional services after DC Status: Acute
--- NOTE | 2017-05-01 21:09 | CP.PCM.PN ---
Subjective - Date & Time of Evaluation Date of Evaluation: 05/01/17 Time of Evaluation: 08:00 - Subjective Subjective: no acute complaints at present Objective - Vital Signs/Intake and Output Vital Signs (last 24 hours): Temp Pulse Resp BP Pulse Ox 97.0 F L 57 L 20 154/70 H 96 05/01/17 08:06 05/01/17 08:49 05/01/17 08:06 05/01/17 08:49 05/01/17 08:06 - Labs Labs: 04/29/17 05:20 04/29/17 05:20 - Head Exam Head Exam: ATRAUMATIC, NORMAL INSPECTION, NORMOCEPHALIC - Eye Exam Eye Exam: EOMI, Normal appearance, PERRL - ENT Exam ENT Exam: Mucous Membranes Moist, Normal Exam - Neck Exam Neck Exam: Full ROM, Normal Inspection. absent: Lymphadenopathy - Respiratory Exam Respiratory Exam: Clear to Ausculation Bilateral, NORMAL BREATHING PATTERN - Cardiovascular Exam Cardiovascular Exam: REGULAR RHYTHM, +S1, +S2. absent: Murmur - GI/Abdominal Exam GI & Abdominal Exam: Soft, Normal Bowel Sounds. absent: Tenderness - Rectal Exam Rectal Exam: NORMAL INSPECTION - Exam External exam: NORMAL EXTERNAL EXAM - Extremities Exam Extremities Exam: Full ROM, Normal Capillary Refill, Normal Inspection. absent : Joint Swelling, Pedal Edema - Neurological Exam Neurological Exam: Alert Neuro motor strength exam: Left Upper Extremity: 4, Right Upper Extremity: 3, Left Lower Extremity: 4, Right Lower Extremity: 3 - Psychiatric Exam Psychiatric exam: Normal Affect, Normal Mood - Skin Skin Exam: Dry, Intact, Normal Color, Warm Assessment and Plan (1) DM2 (diabetes mellitus, type 2) Status: Acute (2) DVT prophylaxis Status: Acute (3) HLD (hyperlipidemia) Status: Acute (4) HTN (hypertension) Status: Acute (5) Status post CVA Assessment & Plan: status post therapies now for subacute rehab additional therapy and medical services at the facility Status: Acute
== END 2017-05-01 13:07 | DRG 57 ==
PROVIDERS: ADMIT Internal Medicine; ATTEND Internal Medicine
PROC: F07Z9FZ Gait Training/Functional Ambulation Treatment using Assistive, Adaptive, Supportive or Protective Equipment (ICD-10-PCS; principal; 2017-04-07)
PROC: F06Z3MZ Aphasia Treatment using Augmentative / Alternative Communication Equipment (ICD-10-PCS; 2017-04-07)
PROC: F08Z4FZ Home Management Treatment using Assistive, Adaptive, Supportive or Protective Equipment (ICD-10-PCS; 2017-04-08)
PROC: F07M6FZ Therapeutic Exercise Treatment of Musculoskeletal System - Whole Body using Assistive, Adaptive, Supportive or Protective Equipment (ICD-10-PCS; 2017-04-08)
DX: I69.351 Hemiplegia and hemiparesis following cerebral infarction affecting right dominant side (principal); D32.0 Benign neoplasm of cerebral meninges; I69.320 Aphasia following cerebral infarction; I10 Essential (primary) hypertension; E11.9 Type 2 diabetes mellitus without complications; E78.5 Hyperlipidemia, unspecified; E78.00 Pure hypercholesterolemia, unspecified; F43.21 Adjustment disorder with depressed mood; H40.9 Unspecified glaucoma; Z79.84 Long term (current) use of oral hypoglycemic drugs